=== PATIENT | male | born 1925 | race Caucasian/White ===

== ENCOUNTER 2016-11-09 20:03 | Inpatient (IN) | payer OTHER ==
[~2016-11-09] VITALS: Ht 182.9 cm; Wt 77.0 kg
[2016-11-09] MEDS ORDERED: CEFEPIME 2GM/50 ML (PMX) 50 ML IVPB STA (20:12)
[2016-11-09] MEDS ORDERED: VANCOMYCIN 1 GM (PMX) 250 ML IVPB ONE (20:30)
[2016-11-09] MEDS ORDERED: SOD CHLORIDE 0.9% 1,000 ML IV ONE ×2 (20:30)
[2016-11-09 20:49] LABS: ADD SCAN DIFF NO
[2016-11-09 20:52] LABS: ABNORMAL IP MESSAGE 1; HEMATOCRIT 43.8 % (42.0-52.0); HEMOGLOBIN 13.9 g/dl (14.0-18.0); MEAN CORPUSCULAR HGB CONC 31.7 g/dl (32.0-37.0); MEAN CORPUSCULAR VOLUME 91.4 fl (82.0-101.0); MEAN PLATELET VOLUME 11.1 fl (7.4-10.4); PLATELET COUNT 84 10^3/UL (140-415); RED BLOOD COUNT 4.79 10^6/ul (4.70-6.10); RED CELL DISTRIBUTION WIDTH 17.3 % (11.5-14.5); WHITE BLOOD COUNT 21.4 10^3/ul (4.8-10.8)
[2016-11-09] MEDS ORDERED: PIPER-TAZO 3.375 GM IV (PMX) 100 ML IVPB ONE (21:00)
[2016-11-09 21:05] LABS: ALBUMIN 4.1 g/dl (3.3-4.9); INR 1.55; PROTIME 18.7 Sec (12.2-14.2); PT RATIO 1.5
[2016-11-09 21:06] LABS: POTASSIUM 4.2 mmol/L (3.5-5.1)
[2016-11-09 21:08] LABS: ALBUMIN/GLOBULIN RATIO 1.28; BILIRUBIN,INDIRECT 0.7 mg/dl (0-1.1); BILIRUBIN,TOTAL 0.7 mg/dl (0.2-1.3); CREATININE 1.44 mg/dl (0.61-1.24); TOTAL PROTEIN 7.3 g/dl (6.1-8.1)
[2016-11-09 21:09] LABS: CALCIUM 8.9 mg/dl (8.4-10.2)
[2016-11-09 21:12] LABS: ADD UMIC YES; URINE BILIRUBIN (Dip) 1+ (NEGATIVE); URINE BLOOD (Dip) 3+ (NEGATIVE); URINE COLOR YELLOW (YELLOW); URINE GLUCOSE (Dip) NEGATIVE (NEGATIVE); URINE KETONES (Dip) 15 (NEGATIVE); URINE LEUKOCYTE ESTERASE (Dip) NEGATIVE (NEGATIVE); URINE NITRITE (Dip) NEGATIVE (NEGATIVE); URINE TOTAL PROTEIN (Dip) 2+ (NEGATIVE); URINE UROBILINOGEN (Dip) 0.2 E.U./dL (0.1-1.0)
[2016-11-09 21:24] LABS: PARTIAL THROMBOPLASTIN TIME 96.7 Sec (25.0-35.0)
[2016-11-09 21:33] LABS: TROPONIN-I 0.239 ng/ml (0.00-0.12)
[2016-11-09 21:36] LABS: ICTOTEST NEGATIVE (NEGATIVE)
[2016-11-09 21:38] LABS: BACTERIA,URINE RARE; SQUAMOUS EPITHELIAL CELL,UR RARE; URINE RBCS 0-2 /HPF (0)
--- NOTE | 2016-11-09 21:51 | RADRPT ---
PROCEDURE: XR Chest. CLINICAL INDICATION: Shortness of breath. TECHNIQUE: A single portable view of the chest was obtained. COMPARISON: None FINDINGS: Volume loss in the right hemithorax is seen with rightward mediastinal shift. Ill-defined opacifica tion of the right hemithorax is seen. The aorta is tortuous and atherosclerotic. The cardiomediast inal silhouette is otherwise within normal limits. The left lung is relatively clear. The soft tiss ues and osseous structures demonstrate benign age related senescent changes. IMPRESSION: Right hemithorax volume loss with rightward mediastinal shift. Ill-defined opacification of the right hemithorax. RPTAT: HPNM Physician Mary Ann Date Time Electronically viewed and signed by John Sullivan Physician on 11/09/2016 21:51 /
[2016-11-09] MEDS ORDERED: ASPIRIN 300 MG SUPP PR ONE (22:00)
[2016-11-09 22:14] LABS: LYMPHOCYTES # 0.4 10^3/ul (0.8-2.9); MONOCYTE # 0.4 10^3/ul (0.3-0.9); NEUTROPHIL # 20.1 10^3/ul (1.6-7.5)
[2016-11-09 22:16] LABS: ANISOCYTOSIS 1+; PLATELET ESTIMATE PLT APPEAR DECREASED
[2016-11-09] MEDS ORDERED: SOD CHLORIDE 0.9% 500 ML IV ONE (22:30)
--- NOTE | 2016-11-09 23:04 | RADRPT ---
PROCEDURE: CT chest, abdomen and pelvis without contrast. CLINICAL INDICATION: Shortness of breath and pain. TECHNIQUE: CT of the chest, abdomen and pelvis was performed on a multi-detector high-resolution CT scanner. Contiguous axial images were obtained without intravenous contrast. Coronal and sagitt al reformatted images were also obtained. Images were reviewed on the PACS workstation. One or more of the following dose reduction techniques were used: - Automated exposure control. - Adjustment of the mA and/or kV according to patient size. - Use of iterative reconstruction technique. Exam CTD/vol = 8.93 mGy. Total exam DLP = 703.90 mGy-cm. COMPARISON: None. FINDINGS: Chest: There is a probable right upper lobectomy with scarring and fibrotic changes within the righ t upper chest. There are multiple right-sided rib deformities. There is mild left apical scarring. There are mild bronchiectatic changes within the right lung base. There is no pleural effusion. There is shift of the mediastinum to the right. The visualized thyroid gland is unremarkable. There are no enlarged axillary lymph nodes. There are no enlarged mediastinal or hilar lymph nodes. The heart is normal in size. There is no pericardial thickening or effusion. The aorta is of normal c ourse and caliber with mild scattered atherosclerotic calcifications. There is no pneumothorax. Abdomen: The liver is normal in size. There is no focal mass or dilatation of the biliary tree. T he gallbladder is not distended. Multiple gallstones are identified. The spleen, pancreas and bilat eral adrenal glands are within normal limits. Bilateral kidneys are normal in size with no contour deforming mass. There is no radiopaque renal or ureteral calculus identified. There is mild left pe rinephric stranding. There is no hydronephrosis or hydroureter. There is no retroperitoneal adenop athy. The abdominal aorta is of normal caliber with scattered atherosclerotic calcifications. There is no abnormal bowel wall thickening or distension. There is no bowel obstruction or free air . A normal appendix is identified. There is sigmoid diverticulosis without evidence of diverticuli tis. There is no ascites. Pelvis: The bladder contains a Christine catheter. The uterus is absent. There is no significant pelv ic adenopathy or free fluid. 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 IMPRESSION: Scarring and fibrotic changes within the right upper chest with volume loss and shift of the mediast inum to the right. Mild left apical scarring. Mild right basilar bronchiectasis. Vascular calcifications reflective of atherosclerosis. Cholelithiasis. Mild nonspecific left perinephric stranding. Clinical correlation is needed to exclude pyelonephrit is. Sigmoid diverticulosis without evidence of diverticulitis. 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 .Dominick Huitron MD, MD Date Time Electronically viewed and signed by .Dominick Huitron MD, on 11/09/2016 23:04 .T/
[2016-11-09] MEDS ORDERED: ONDANSETRON 4 MG INJ IV PRN (23:30)
[2016-11-09] MEDS ORDERED: ACETAMINOPHEN 325 MG TAB PO PRN (23:30)
[2016-11-10] VITALS (12 sets, daily range): BP systolic 119–144; BP diastolic 58–63; PULSE 40–48; RESP 16–18; TEMP 99.1; Ht 182.9 cm; Wt 77.0 kg
[2016-11-10] MEDS ORDERED: NITROGLYCERIN (SL) 0.4 MG TAB SL PRN
[2016-11-10] MEDS ORDERED: MAGNESIUM HYDROXIDE 30ML CUP PO PRN
[2016-11-10] MEDS ORDERED: ACETAMINOPHEN 325 MG TAB PO PRN
[2016-11-10] MEDS ORDERED: NACL 0.9% 3 ML SYG IV SCH
[2016-11-10] MEDS ORDERED: VANCOMYCIN IV PER PHARMACY XX SCH
[2016-11-10] MEDS ORDERED: DOCUSATE SODIUM 100 MG CAP PO PRN
[2016-11-10] MEDS ORDERED: morphine 2 MG INJ IV PRN
[2016-11-10] MEDS ORDERED: ONDANSETRON 4 MG INJ IV PRN
[2016-11-10] MEDS ORDERED: BISACODYL 10 MG SUPP PR PRN
--- NOTE | 2016-11-10 00:28 | ERA ---
ER Documentation Chief Complaint Date/Time DATE: 11/10/16 TIME: 00:13 Chief Complaint found ALOC by family approx 30 min ago, febrile. HPI This 89-year-old male was found to be febrile and less responsive than normal by family when he had been at home. He was found this way proximal any 30 minutes prior to coming to the ER via ambulance. He arrives febrile. He was altered and was not able to provide a good history. Family is not yet arrived. ROS Unobtainable secondary to clinical status per Medications Home Meds No Active Prescriptions or Reported Meds Allergies Allergies: Coded Allergies: No Known Drug Allergies (Verified Allergy, Unknown, 11/09/16) Physical Exam Vitals Vital Signs Date Time Temp Pulse Resp B/P Pulse Ox O2 Delivery O2 Flow Rate FiO2 11/09/16 20:09 102.2 50 20 150/57 99 Physical Exam Const: [] No distress Head: Atraumatic Eyes: Normal Conjunctiva, PRL, EOMI ENT: Normal External Ears, Nose, dry mucous membranes of the mouth Neck: Full range of motion..~ No meningismus. Resp: Decreased bibasilar breath sounds, poor participation in inspiration Cardio: Regular bradycardia, no murmurs Abd: Soft, no apparent tenderness, non distended. Normal bowel sounds Skin: No petechiae or rashes, is poor skin turgor Back: No midline or flank tenderness Ext: No cyanosis, or edema Neur: Awake and alert, does not answer orientation questions, Result Diagram: 11/09/16199911/09/161999 Results 24 hrs Laboratory Tests Test 11/09/16 18:30 11/09/16 20:00 11/09/16 23:23 Urine Bacteria RARE Urine Bilirubin 1+ Urine Clarity SLIGHTLY CLOUDY Urine Color YELLOW Urine Glucose NEGATIVE% Urine Hemoglobin 3+ Urine Ictotest NEGATIVE Urine Ketones 15 Urine Leukocyte Esterase NEGATIVE Urine Microscopic RBC 0-2/HPF Urine Microscopic WBC 0-2/HPF Urine Nitrite NEGATIVE Urine Specific [place] >=1.030 Urine Squamous Epithelial Cells RARE Urine Total Protein 2+ Urine Urobilinogen 0.2 E.U./dL Urine pH 5.5 Activated Partial Thromboplast Time 96.7Sec Alanine Aminotransferase (ALT/SGPT) 53IU/L Albumin 4.1g/dl Albumin/Globulin Ratio 1.28 Alkaline Phosphatase 64IU/L Anion Gap 20 Anisocytosis 1+ Aspartate Amino Transf (AST/SGOT) 225IU/L Band Neutrophils % 2.0% Blood Urea Nitrogen 48mg/dl Calcium Level 8.9mg/dl Carbon Dioxide Level 24mmol/L Chloride Level 100mmol/L Creatinine 1.44mg/dl Direct Bilirubin 0.00mg/dl Globulin 3.20g/dl Glucose Level 135mg/dl Hematocrit 43.8% Hemoglobin 13.9g/dl INR International Normalized Ratio 1.55 Indirect Bilirubin 0.7mg/dl Lactic Acid Level 2.1mmol/L 2.8mmol/L Lipase 20U/L Lymphocytes # 0.410^3/ul Lymphocytes % 2.0% Macrocytosis OCCASIONAL Mean Corpuscular Hemoglobin 29.0pg Mean Corpuscular Hemoglobin Concent 31.7g/dl Mean Corpuscular Volume 91.4fl Mean Platelet Volume 11.1fl Monocytes # 0.410^3/ul Monocytes % 2.0% Neutrophils # 20.110^3/ul Neutrophils % 94.0% Platelet Count 8410^3/UL Platelet Estimate PLT APPEAR DECREASED Potassium Level 4.2mmol/L Prothrombin Time 18.7Sec Prothrombin Time Ratio 1.5 Red Blood Count 4.7910^6/ul Red Cell Distribution Width 17.3% Sodium Level 140mmol/L Total Bilirubin 0.7mg/dl Total Protein 7.3g/dl Troponin I 0.239ng/ml White Blood Count 21.410^3/ul Current Medications Medications (Trade) Dose Ordered Sig/Kendall Route PRN Reason Start Time Stop Time Status Last Admin Dose Admin Cefepime HCl 50 ml @ 100 mls/hr ONCE STAT IVPB 11/09/16 20:12 11/09/16 20:39 DC Vancomycin HCl 250 ml @ 125 mls/hr ONCE ONCE IVPB 11/09/16 20:30 11/09/16 22:29 DC 11/09/16 22:54 Sodium Chloride 1,000 ml @ 1,000 mls/hr Q1H ONCE IV 11/09/16 20:30 11/09/16 21:29 DC 11/09/16 21:08 Sodium Chloride 1,000 ml @ 1,000 mls/hr Q1H ONCE IV 11/09/16 20:30 11/09/16 21:29 DC 11/09/16 21:08 Piperacillin Sod/ Tazobactam Sod (Zosyn 3.375gm/ 100 ml (Pmx)) 100 ml @ 200 mls/hr ONCE ONCE IVPB 11/09/16 21:00 11/09/16 21:29 DC 11/09/16 21:08 Aspirin 300 mg 300 mg ONCE ONCE NC 11/09/16 22:00 11/09/16 22:07 DC 11/09/16 21:30 Sodium Chloride (NS) 500 ml @ 500 mls/hr Q1H ONCE IV 11/09/16 22:30 11/09/16 23:29 DC 11/09/16 23:03 Ondansetron HCl (Zofran Inj) 4 mg ER BRIDGE PRN IV NAUSEA AND/OR VOMITING 11/09/16 23:30 11/10/16 23:29 Acetaminophen 650 mg 650 mg ER BRIDGE PRN PO MILD PAIN/FEVER 11/09/16 23:30 11/10/16 23:29 Sodium Chloride (NS) 1,000 ml @ 80 mls/hr [id number] IV 11/09/16 23:49 IV Flush (NS 3 ml) 3 ml PER PROTOCOL IV 11/10/16 00:00 Ondansetron HCl (Zofran Inj) 4 mg Q6H PRN IV NAUSEA AND/OR VOMITING 11/10/16 00:00 Aspirin (Aspirin) 81 mg DAILY PO 11/10/16 09:00 Nitroglycerin (Nitroglycerin (Sl Tab) 0.4 Mg) 1 tab Q5M PRN SL CHEST PAIN 11/10/16 00:00 Acetaminophen (Tylenol Tab) 650 mg Q6H PRN PO PAIN LEVEL 1-3 OR FEVER 11/10/16 00:00 Morphine Sulfate (morphine) 2 mg Q4H PRN IV PAIN LEVEL 7-10 11/10/16 00:00 Docusate Sodium (Colace) 100 mg Q12H PRN PO CONSTIPATION 11/10/16 00:00 Magnesium Hydroxide (Milk Of Mag) 30 ml DAILY PRN PO CONSTIPATION 11/10/16 00:00 Bisacodyl (Dulcolax Supp) 10 mg DAILY PRN NC CONSTIPATION 11/10/16 00:00 Famotidine (Pepcid Iv) 20 mg DAILY IV 11/10/16 09:00 Enoxaparin Sodium (Lovenox) 30 mg DAILY SC 11/10/16 09:00 Vancomycin HCl VANCOMYCIN PER PHARMACY PER PROTOCOL XX 11/10/16 00:00 Cefepime HCl 50 ml @ 100 mls/hr Q12 IVPB 11/10/16 09:00 Vancomycin HCl (Vancocin) 250 ml @ 125 mls/hr Q24H IVPB 11/10/16 17:00 Procedures/MDM Patient with sepsis likely secondary to pneumonia. The patient's initial urinalysis appears to be negative for acute infection there is fat stranding on abdominal CT which may indicate pyelonephritis as possible etiology. I do see possible basilar pneumonia on the chest CT as well. Patient was hydrated with normal saline at 30 cc/kg. He started empirically on Zosyn and vancomycin. Chest x-ray showed possible atelectatic collapse of the right lung. CT was then obtained to look for the source of the sepsis. The radiologist is likely lobectomy has been performed in that lung. Patient had some elevation of lactic acid on the second draw. An additional liter of fluid was administered. Patient's blood pressure remained stable. Being admitted to telemetry in serious condition for further antibiotic therapy and treatment of sepsis with hydration. I spoke with Dr. Silva who will be admitting the patient. EKG interpretation: Sinus bradycardia rate of 58, bifascicular block, no consistent ST elevations or depressions concerning for acute ischemia, borderline right axis deviation. community education coordinator interpretation: Sinus bradycardia without arrhythmias Chest x-ray interpretation: Partial collapse of right lobe of lung with mediastinal shift to the right, no pneumothorax, no obvious infiltrate, no fractures CT chest interpretation: Mediastinal shift with compression of right lung, consolidation right lower lobe, suspicious for pneumonia, pneumothorax, no fractures CT abdomen pelvis interpretation: Perinephric fat stranding, no bowel obstruction, no free air, no acute fractures Critical care time 41 minutes: This includes treatment of sepsis with not completely clear source in the face of troponin elevation, fever, unstable vital signs, careful fluid administration, early antibiotic administration, all visits the patient's bedside to reassess fluid and cardiothymic status, discussion with admitting doctor, discussion with patient's family, this does not include any billable procedures. Departure Diagnosis: Primary Impression: Sepsis Additional Impressions: Pneumonia Renal insufficiency Elevated troponin Lactic acidosis Metabolic encephalopathy Bradycardia DIPAK STANLEY DO Nov 10, 2016 00:27
[2016-11-10] MEDS ORDERED: SOD CHLORIDE 0.9% 1,000 ML IV ONE (00:30)
[2016-11-10] MEDS: SOD CHLORIDE 0.9% 1,000 ML IV SCH ×3 (00:38→16:48)
[2016-11-10 03:27] LABS: CK-MB 12.7 ng/ml (0.0-2.4); TROPONIN-I 0.223 ng/ml (0.00-0.12)
[2016-11-10 06:49] LABS: ADD SCAN DIFF NO
[2016-11-10 06:53] LABS: ABNORMAL IP MESSAGE 1; BASOPHIL # 0.1 10^3/ul (0.0-0.1); BASOPHILS % 0.3 % (0.0-2.0); HEMATOCRIT 36.6 % (42.0-52.0); HEMOGLOBIN 11.3 g/dl (14.0-18.0); LYMPHOCYTES # 0.9 10^3/ul (0.8-2.9); LYMPHOCYTES % 4.8 % (15.0-51.0); MEAN CORPUSCULAR HEMOGLOBIN 28.8 pg (29.0-33.0); MEAN CORPUSCULAR HGB CONC 30.9 g/dl (32.0-37.0); MEAN CORPUSCULAR VOLUME 93.1 fl (82.0-101.0); MEAN PLATELET VOLUME 10.4 fl (7.4-10.4); MONOCYTE # 0.9 10^3/ul (0.3-0.9); MONOCYTES % 4.8 % (0.0-11.0); NEUTROPHIL # 17.3 10^3/ul (1.6-7.5); NEUTROPHILS % 88.4 % (39.0-77.0); PLATELET COUNT 60 10^3/UL (140-415); RED BLOOD COUNT 3.93 10^6/ul (4.70-6.10); RED CELL DISTRIBUTION WIDTH 17.3 % (11.5-14.5); WHITE BLOOD COUNT 19.5 10^3/ul (4.8-10.8)
[2016-11-10 07:02] LABS: ALBUMIN 2.6 g/dl (3.3-4.9)
[2016-11-10 07:03] LABS: POTASSIUM 3.8 mmol/L (3.5-5.1)
[2016-11-10 07:05] LABS: ALBUMIN/GLOBULIN RATIO 1.18; BILIRUBIN,INDIRECT 0.3 mg/dl (0-1.1); BILIRUBIN,TOTAL 0.3 mg/dl (0.2-1.3); CREATININE 1.18 mg/dl (0.61-1.24); TOTAL PROTEIN 4.8 g/dl (6.1-8.1)
[2016-11-10 07:06] LABS: CALCIUM 6.9 mg/dl (8.4-10.2); CHOL/HDL RATIO 2.3 RATIO; MAGNESIUM 1.8 mg/dl (1.7-2.5)
[2016-11-10] MEDS: ASPIRIN 81 MG TAB PO SCH (08:11)
[2016-11-10] MEDS: ENOXAPARIN 30 MG/0.3 ML SYG SC SCH (08:16)
[2016-11-10] MEDS ORDERED: FAMOTIDINE 20 MG INJ IV SCH (09:00)
[2016-11-10] MEDS ORDERED: MAGNESIUM SULFATE 2 GM/50 ML 50 ML IVPB ONE (10:30)
[2016-11-10] MEDS: CEFEPIME 2GM/50 ML (PMX) 50 ML IVPB SCH ×2 (10:44→20:34)
--- NOTE | 2016-11-10 11:04 | HP ---
DATE OF ADMISSION: 11/09/2016 PRIMARY CARE PHYSICIAN: Unknown. CHIEF COMPLAINT ON ADMISSION: Fevers, altered level of consciousness. HISTORY OF PRESENT ILLNESS: This is an 89-year-old male who claims that he does not have much of a past medical history except for status post right upper lobectomy. He could not tell me why; katerin amanda, he has been pretty much independent at home and was brought in yesterday by family after he was f ound at home in an altered mental status. The patient reports that over the past 2 weeks he has bee n feeling weaker. His appetite has been intact, but just generalized weakness. He denies any fever s, chills, nausea, vomiting, dysuria or hematuria. No new cough, no productive cough. No abdominal pain, constipation or diarrhea. He denies chest pain or shortness of breath. He denies any previo us history of coronary artery disease and even denies taking any medications. On arrival yesterday in the emergency department, he was too altered. There is no family apparently; therefore, the hist ory is very limited. Currently, there is no family at bedside. We will try to find them. The meaghan ent was found to have possibly left pyelonephritis with a positive urinalysis. Cultures are pending . Based on the CAT scan of the chest, the findings on the chest x-ray are mostly chronic and relate d to this previous right upper lobe lobectomy. The patient, however, was found to have a white bloo d cell count of 21,000 with significant left shift, neutrophils 91%. He was febrile to 102. His la ctic acid was slightly elevated on admission, which is now resolved by this morning. He was also fo und to have positive troponin, slightly elevated BNP consistent with either NSTEMI or demand ischemi a. He has been started on aspirin along with heparin subq. His troponins are being trended. He is noted to be bradycardic, mostly sinus on telemetry; therefore, cardiology is consulted. A 2-D echo cardiogram has been done. He is on broad spectrum antibiotics until his cultures are back. He is a febrile this morning. ALLERGIES: NO KNOWN ALLERGIES. PAST MEDICAL HISTORY: 1. Unclear, but status post right upper lobectomy for unclear reasons remotely. 2. Status post spine surgery. The patient does not remember if it was thoracic versus lumbar. OUTPATIENT MEDICATIONS: None are listed. SOCIAL HISTORY: The patient denies any alcohol or tobacco use. REVIEW OF SYSTEMS: As per HPI. PHYSICAL EXAMINATION: VITAL SIGNS: Temperature this morning is 97.5 with a T-max of 102.9, heart rate has been in the upp er 40s to low 50s, sinus bradycardia, blood pressure 144/60, pulse of 99% on 2 liters nasal cannula. The patient has a respiratory rate of 18. GENERAL: He is alert and oriented x4 this morning in no acute distress, eating breakfast, comforta ble, able to give his history. HEENT: Pupils are equally round and reactive to light. Extraocular muscles are intact. Anicteric sclerae. NECK: No JVD, no thyromegaly noted. HEART: Regular rate and rhythm. LUNGS: He does have decreased breath sounds in the right upper lobe area, but seems to be clear on the left side and bases. ABDOMEN: Soft, nontender, nondistended. Bowel sounds are present. EXTREMITIES: No edema, clubbing or cyanosis. GENITOURINARY: The patient does have a Christine catheter in place with clear urine. NEUROLOGIC: Exam is very limited, but he is at least 4+/5 strength throughout. Physical therapy wi ll be ordered. LABORATORY DATA: White blood cell count is 19.5 this morning, hemoglobin is 11.3, hematocrit of 36. 6, platelet count of 60, neutrophils 88%. Chemistry with a sodium of 143, potassium 3.8, chloride 1 08, bicarbonate 23, BUN 44, creatinine 1.18 down from 1.44, glucose of 101. Lactic acid has normali zed down to 1.0, calcium 6.9, magnesium 1.8, total bilirubin 0.3, AST 241, ALT 67, alkaline phosphat ase 46. Latest troponin 0.223. BNP 5740, total protein 4.8, albumin 2.6. Fasting lipid panel with in normal. TSH, free T4 pending at this point. Lipase of 20. EKG on admission did show sinus bradycardia in the upper 40s with a right bundle branch block, bifas cicular block. Urinalysis is negative for leukocyte esterase, cloudy, negative for nitrites. RADIOLOGICAL DATA: 1. Chest x-ray on admission did show right hemithorax volume loss with ____ mediastinal shift, ill- defined opacification of right hemithorax. CAT scan of the chest, abdomen and pelvis did show scan mario alberto and several fibrotic changes within the right upper chest with volume loss and shift of the med iastinum to the right. This is secondary to right upper lobectomy. Mild left apical scarring, mild right basilar bronchiectasis, vascular calcification reflective of osteosclerosis, cholelithiasis, mild nonspecific left perinephric stranding, sigmoid diverticulosis without diverticulitis, bilater al pars defect of L5 with grade II anterolisthesis of the L5-S1. ASSESSMENT AND PLAN: This is an 89-year-old male with: 1. Febrile illness that could be secondary to either bronchitis versus urinary tract infection and pyelonephritis. We are awaiting blood cultures along with urine culture. We will have the patient on incentive spirometer, continue broad spectrum antibiotics for now. White count is still elevated , but lactate has normalized. 2. Elevated troponin, possible non-ST elevation myocardial infarction, also concern regarding nenita cardia at this time. Will continue aspirin. I will discuss the case with Dr. Greer. A 2-D echoca rdiogram has been done. We will continue to trend the troponins. Patient denies any previous known history of coronary artery disease so far. His heart rate is too low for any beta blockers current ly and given the concerns for sepsis, we will also avoid any other blood pressure agent unless neede d. 3. Acute kidney injury secondary to prerenal azotemia, improving and resolving. He is on normal sa line at 80 mL an hour. 4. Lactic acidosis, resolved with a lactate down to normal. 5. Sinus bradycardia, so far with bifascicular block, unclear etiology, rule out coronary artery di sease and acute coronary syndrome which may be the case as the patient's troponins are slightly elev ated with normalizing creatinine level. Follow up on 2-D echocardiogram and cardiology evaluation. Currently, the patient is on telemetry, and he is hemodynamically stable. 6. Status post right upper lobectomy. 7. Possible pyelonephritis on CT. Continue current antibiotics. 8. Prophylaxis. Lovenox for DVT prophylaxis. Pepcid for GI prophylaxis. DISPOSITION: The patient on telemetry to be seen by cardiology today. Continue IV antibiotics and will attempt to find family for further disposition. Dictated By: ESPERANZA SALCIDO/SHAKILA Conf#: [id number] [facility]#: [id number]
[2016-11-10 12:51] LABS: TROPONIN-I 0.092 ng/ml (0.00-0.12)
[2016-11-10 12:56] LABS: CK-MB 11.4 ng/ml (0.0-2.4)
--- NOTE | 2016-11-10 13:09 | CONS ---
Date/Time of Note Date/Time of Note DATE: 11/10/16 TIME: 13:03 Assessment/Plan Assessment/Plan Additional Assessment/Plan Presumed sepsis SIRS Encephalopathy 2-1 AV block Acute kidney injury Mildly elevated troponin -Patient with 2-1 AV block on telemetry. Patient remains asymptomatic. Patient with improvement in mental status since initiation of broad-spectrum antibiotics and IV fluids. Would hold any AV dalia blocking agents, continue telemetry monitoring, check echocardiogram to rule out structural heart disease. Troponin elevation is minimal and trending down and patient remains asymptomatic. Likely secondary to sepsis. Continue aspirin, start statin therapy if no complication. Consultation Date/Type/Reason Admit Date/Time Nov 09, 2016 at 23:32 Type of Consultation: cv Reason for Consultation Bradycardia Hx of Present Illness This is an 89-year-old patient who presents to the emergency room secondary to altered mental status over the past 24 hours. As per the family at bedside, yesterday, patient was very sleepy, would not eat and was very sluggish. This was not his normal self. Because of the above, he was brought to the emergency room for evaluation. Patient with presumed sepsis and started on broad- spectrum antibiotics. Today, patient is doing much better, he is awake, following commands, is able to recognize people and knows where he has. He denies any chest pain, shortness of breath, dizziness or lightheadedness. Denied any history of syncope or near syncope with ambulation. 12 point review of systems was performed with all pertinent positives and negatives mentioned above and all else is negative Past Medical History Dementia Past Surgical History Lung surgery Family History Significant Family History: no pertinent family hx Social History Smoking Status: Former smoker Other Social History Lives at home with family Exam/Review of Systems Vital Signs Vitals Vital Signs Date Time Temp Pulse Resp B/P Pulse Ox O2 Delivery O2 Flow Rate FiO2 11/10/16 12:17 48 11/10/16 11:04 98.0 18 135/61 97 11/10/16 01:44 Nasal Cannula 3.0 Intake and Output 11/09/16 11/09/16 11/10/16 15:00 23:00 07:00 Intake Total 600 ml Output Total 800 ml Balance -200 ml Exam Patient alert and oriented to person and place, no apparent distress, able to give history Head: normocephalic Neck: supple Respiratory: other (Coarse breath sounds bilaterally, no wheezing) Cardiovascular: other (S1-S2 heard), regular rate and rhythm (Bradycardic) Gastrointestinal: bowel sounds, non-tender, other (No guarding), soft Extremities: edema (Trace), other (No cyanosis) Results Result Diagram: 11/10/16 0610 11/10/16 0610 Results 24 hrs Laboratory Tests Test 11/09/16 18:30 11/09/16 20:00 11/09/16 23:23 11/10/16 02:28 Urine Bacteria RARE Urine Bilirubin 1+ H Urine Clarity SLIGHTLY CLOUDY Urine Color YELLOW Urine Glucose NEGATIVE Urine Hemoglobin 3+ H Urine Ictotest NEGATIVE Urine Ketones 15 Urine Leukocyte Esterase NEGATIVE Urine Microscopic RBC 0-2 Urine Microscopic WBC 0-2 Urine Nitrite NEGATIVE Urine Specific [place] >=1.030 H Urine Squamous Epithelial Cells RARE Urine Total Protein 2+ H Urine Urobilinogen 0.2 E.U./dL Urine pH 5.5 Activated Partial Thromboplast Time 96.7 *H Alanine Aminotransferase (ALT/SGPT) 53 Albumin 4.1 Albumin/Globulin Ratio 1.28 Alkaline Phosphatase 64 Anion Gap 20 H Anisocytosis 1+ Aspartate Amino Transf (AST/SGOT) 225 H Band Neutrophils % 2.0 Blood Urea Nitrogen 48 H Calcium Level 8.9 Carbon Dioxide Level 24 Chloride Level 100 Creatinine 1.44 H Direct Bilirubin 0.00 Globulin 3.20 Glucose Level 135 Hematocrit 43.8 Hemoglobin 13.9 L INR International Normalized Ratio 1.55 Indirect Bilirubin 0.7 Lactic Acid Level 2.1 2.8 H 0.9 Lipase 20 L Lymphocytes # 0.4 L Lymphocytes % 2.0 L Macrocytosis OCCASIONAL Mean Corpuscular Hemoglobin 29.0 Mean Corpuscular Hemoglobin Concent 31.7 L Mean Corpuscular Volume 91.4 Mean Platelet Volume 11.1 H Monocytes # 0.4 Monocytes % 2.0 Neutrophils # 20.1 H Neutrophils % 94.0 H Platelet Count 84 L Platelet Estimate PLT APPEAR DECREASED Potassium Level 4.2 Prothrombin Time 18.7 H Prothrombin Time Ratio 1.5 Red Blood Count 4.79 Red Cell Distribution Width 17.3 H Sodium Level 140 Total Bilirubin 0.7 Total Protein 7.3 Troponin I 0.239 *H 0.223 *H White Blood Count 21.4 H B-Type Natriuretic Peptide 5740 H Creatine Kinase Creatine Kinase Index 0.1 Creatinine Kinase MB (Mass) 12.70 H Test 11/10/16 06:10 11/10/16 11:45 Alanine Aminotransferase (ALT/SGPT) 67 Albumin 2.6 #L Albumin/Globulin Ratio 1.18 Alkaline Phosphatase 46 Anion Gap 16 Aspartate Amino Transf (AST/SGOT) 241 H Basophils # 0.1 Basophils % 0.3 Blood Urea Nitrogen 44 H Calcium Level 6.9 L Carbon Dioxide Level 23 Chloride Level 108 Cholesterol Level 94 L Cholesterol/HDL Ratio 2.3 Creatinine 1.18 Direct Bilirubin 0.00 Eosinophils # 0.0 Eosinophils % 0.0 Globulin 2.20 Glucose Level 101 HDL Cholesterol 40 Hematocrit 36.6 L Hemoglobin 11.3 L Indirect Bilirubin 0.3 LDL Cholesterol, Calculated 45 Lactic Acid Level 1.0 Lymphocytes # 0.9 Lymphocytes % 4.8 L Magnesium Level 1.8 Mean Corpuscular Hemoglobin 28.8 L Mean Corpuscular Hemoglobin Concent 30.9 L Mean Corpuscular Volume 93.1 Mean Platelet Volume 10.4 Monocytes # 0.9 Monocytes % 4.8 Neutrophils # 17.3 H Neutrophils % 88.4 H Nucleated Red Blood Cells # 0.0 Nucleated Red Blood Cells % 0.0 Platelet Count 60 #L Potassium Level 3.8 Red Blood Count 3.93 L Red Cell Distribution Width 17.3 H Sodium Level 143 Total Bilirubin 0.3 Total Protein 4.8 #L Triglycerides Level 46 White Blood Count 19.5 H Creatine Kinase Creatine Kinase Index Pending Creatinine Kinase MB (Mass) 11.40 H Troponin I 0.092 Medications Medications Current Medications Sodium Chloride (NS) 1,000 ml @ 80 mls/hr [id number] IV Last administered on 00:38; Admin Dose 80 MLS/HR; Start 11/09/16 at 23:49 Ondansetron HCl (Zofran Inj) 4 mg Q6H PRN IV NAUSEA AND/OR VOMITING; Start 11/10 at 00:00 Aspirin (Aspirin) 81 mg DAILY PO Last administered on 11/10/16 08:11; Admin Dose 81 MG; Start 11/10/16 at 09:00 Nitroglycerin (Nitroglycerin (Sl Tab) 0.4 Mg) 1 tab Q5M PRN SL CHEST PAIN; Start 11/10/16 at 00:00 Acetaminophen (Tylenol Tab) 650 mg Q6H PRN PO PAIN LEVEL 1-3 OR FEVER; Start at 00:00 Morphine Sulfate (morphine) 2 mg Q4H PRN IV PAIN LEVEL 7-10; Start 11/10/16 at 00:00 Docusate Sodium (Colace) 100 mg Q12H PRN PO CONSTIPATION; Start 11/10/16 at 00: 00 Magnesium Hydroxide (Milk Of Mag) 30 ml DAILY PRN PO CONSTIPATION; Start at 00:00 Bisacodyl (Dulcolax Supp) 10 mg DAILY PRN [place] CONSTIPATION; Start 11/10/16 at 00: 00 Famotidine (Pepcid Iv) 20 mg DAILY IV Last administered on 11/10/16 08:11; Admin Dose 20 MG; Start 11/10/16 at 09:00 Enoxaparin Sodium 30 mg 30 mg DAILY SC Last administered on 11/10/16 08:16; Admin Dose 30 MG; Start 11/10/16 at 09:00 Cefepime HCl 50 ml @ 100 mls/hr Q12 IVPB Last administered on 11/10/16 10:44; Admin Dose 100 MLS/HR; Start 11/10/16 at 09:00 Vancomycin HCl (Vancocin) 250 ml @ 125 mls/hr Q24H IVPB ; Start 11/10/16 at 17: 00 Procedures Procedures 2-1 AV block with ventricular rate of 48 bpm, right bundle branch block, left anterior fascicular block Ge Greer DO Nov 10, 2016 13:09
[2016-11-10 13:52] LABS: PLATELET COUNT 57 10^3/UL (140-415)
[2016-11-10 14:10] LABS: INR 1.68; PROTIME 19.9 Sec (12.2-14.2); PT RATIO 1.6
[2016-11-10 14:11] LABS: PARTIAL THROMBOPLASTIN TIME 45.1 Sec (25.0-35.0); THROMBIN TIME 16.2 SEC (13.8-19.1)
[2016-11-10 14:14] LABS: D-DIMER 1094.19 ng/ml (<460)
[2016-11-10 14:15] LABS: FIBRIN SPLIT PRODUCT <10 ug/ml (<10)
[2016-11-10] MEDS: VANCOMYCIN 1 GM in NS 250 ML IVPB SCH (16:47)
[2016-11-10 17:19] LABS: CK-MB 7.67 ng/ml (0.0-2.4)
[2016-11-10 17:20] LABS: TROPONIN-I 0.106 ng/ml (0.00-0.12)
[2016-11-10] MEDS ORDERED: ATORVASTATIN 20 MG TAB PO SCH (21:00)
--- NOTE | 2016-11-10 21:36 | RADRPT ---
Echocardiogram Report Patient Name: EARNESTINE MOLINA Gender: Male Date: 1925 Study Date: 10-Nov-2016 Tmd Teacher Assistant: Micha Paz [facility] Location: [address] Ref. Physician: MANJU DIAZ Quality: Technically Difficult Study Procedures: Transthoracic echocardiogram with complete 2D, M-Mode, and doppler examination. Indications: elevated troponin. 2D/M Mode Doppler Measurement Value Normal Ranges Measurement Value Normal Ranges LVIDd 2D 3.8 3.5 - 5.6 cm AV Peak Abdelrahman 2.3 m/sec LVIDs 2D 2.1 2.1 - 4.1 cm AV Peak PG 22.0 mmHg FS 2D 44.9 % LVOT Peak Abdelrahman 0.9 m/sec LVPWd 2D 0.9 0.6 - 1.1 cm LVOT Peak PG 3.0 mmHg IVSd 2D 0.8 0.6 - 1.1 cm TR Peak Abdelrahman 2.8 m/sec IVS/LVPW 2D 1.0 TR Peak PG 32.0 mmHg AoR Diam 2D 2.5 2.0 - 3.7 cm RVSP 35.0 mmHg LA/Ao 2D 1 0 - 1 EDV 2D 55.3 cm3 ESV 2D 9.3 cm3 LA Dimen 2D 3.0 2.3 - 4.0 cm Findings Left Ventricle: Overall, normal left ventricular systolic function. Not all segments visualized. Normal left ventricular cavity size. Normal left ventricular wall thickness. Ejection fraction is visually estimated at 65 %. Right Ventricle: Normal right ventricular size. Normal right ventricular systolic function. Left Atrium: The left atrium is normal in size. Right Atrium: The right atrium is normal in size. Mitral Valve: Mitral valve is not well visualized. Mild mitral annular calcification. Trace mitral regurgitation. Aortic Valve: No significant aortic stenosis or insufficiency. Aortic valve not well visualized. Aortic cusps appear mildly calcified. Tricuspid Valve: Tricuspid valve not well visualized. Estimated peak PA systolic pressure 35 mmHg. There is mild tricuspid regurgitation. Pulmonic Valve: Pulmonic valve not well visualized. Pericardium: Normal pericardium with no significant pericardial effusion. Aorta: Normal aortic root. IVC: Normal size and normal respiratory collapse consistent with normal right atrial pressure. Conclusions Overall, normal left ventricular systolic function. Not all segments visualized. Normal left ventricular cavity size. Normal left ventricular wall thickness. Ejection fraction is visually estimated at 65 %. Normal right ventricular size. Normal right ventricular systolic function. The left atrium is normal in size. The right atrium is normal in size. Estimated peak PA systolic pressure 35 mmHg. There is mild tricuspid regurgitation. Trace mitral regurgitation. No significant aortic stenosis or insufficiency. Normal pericardium with no significant pericardial effusion. Electronically Signed By: Ge Greer 10-Nov-2016 21:35:05 -0800 Patient Name: EARNESTINE MOLINA Study Date: 10-Nov-2016 [id number]
[2016-11-11] VITALS (12 sets, daily range): BP systolic 131–176; BP diastolic 58–79; PULSE 40–50; RESP 18–20
[2016-11-11] MEDS: SOD CHLORIDE 0.9% 1,000 ML IV SCH ×4 (00:49→20:02)
[2016-11-11 06:15] LABS: ADD SCAN DIFF NO
[2016-11-11 06:25] LABS: LYMPHOCYTES # 0.5 10^3/ul (0.8-2.9); MONOCYTE # 0.9 10^3/ul (0.3-0.9); RED CELL DISTRIBUTION WIDTH 17.2 % (11.5-14.5)
[2016-11-11 06:35] LABS: CREATININE 1.02 mg/dl (0.61-1.24)
[2016-11-11 06:36] LABS: CALCIUM 6.9 mg/dl (8.4-10.2)
[2016-11-11 07:00] LABS: MAGNESIUM 2.3 mg/dl (1.7-2.5); PHOSPHORUS 2.1 mg/dl (2.5-4.9)
[2016-11-11 07:13] LABS: BASOPHILS % 0.1 % (0.0-2.0); HEMATOCRIT 36.1 % (42.0-52.0); HEMOGLOBIN 11.2 g/dl (14.0-18.0); MEAN CORPUSCULAR HEMOGLOBIN 28.6 pg (29.0-33.0); MEAN CORPUSCULAR VOLUME 92.1 fl (82.0-101.0); PLATELET COUNT 53 10^3/UL (140-415); RED BLOOD COUNT 3.92 10^6/ul (4.70-6.10); WHITE BLOOD COUNT 15.3 10^3/ul (4.8-10.8)
[2016-11-11 07:14] LABS: ABNORMAL IP MESSAGE 1; NEUTROPHIL # 13.7 10^3/ul (1.6-7.5)
[2016-11-11] MEDS: ASPIRIN 81 MG TAB PO SCH (08:07)
[2016-11-11] MEDS: FAMOTIDINE 20 MG TAB PO SCH (08:07)
[2016-11-11] MEDS: CEFEPIME 2GM/50 ML (PMX) 50 ML IVPB SCH ×2 (08:09→20:02)
[2016-11-11] MEDS: ENOXAPARIN 30 MG/0.3 ML SYG SC SCH (08:11)
--- NOTE | 2016-11-11 10:30 | PN ---
Date/Time of Note Date/Time of Note DATE: 11/11/16 TIME: 09:12 Assessment/Plan VTE Prophylaxis VTE Prophylaxis Intervention: LMWH Lines/Catheters IV [facility]ter Type (from [facility]): Peripheral IV Urinary Cath still in place: Yes Reason Cath still needed: other (indicate) (ELVER, to be discontinued ) Assessment/Plan Assessment/Plan 89-year-old male with: 1. Febrile illness that could be secondary to either bronchitis versus urinary tract infection and pyelonephritis. Afebrile and WBC trending down Blood cx 1/2 with GPC and Urine cx mixed bacteria Repeat Blood cx today Continue current abx while awaiting blood cx. 2. Elevated troponin, possible non-ST elevation myocardial infarction, also concern regarding bradycardia. Appreciate Dr Greer's evaluation and recommendations, CE trended down 2-D echocardiogram wnl. 3. Sinus bradycardia, 2:[address] Greer, unclear etiology, Trop back down to normal. TFTs wnl. Continue telemetry monitoring Remains hemodynamically stable. 4. Acute kidney injury secondary to prerenal azotemia, improving and resolving. But patient also seems to be in rhabdomyolysis with total CK up to 14K Increase IVF to 100 cc/hr and monitor UOP and CK level. 5. [place] [id number] yesterday, repeat CK pending today, continue IVF 6. Thrombocytopenia: unclear if chronic, will try to obtain previous records if any and CT a/p with normal liver Monitor. 7. Lactic acidosis, resolved with a lactate down to normal. 8. Status post right upper lobectomy. 9. Possible pyelonephritis on CT. Continue current antibiotics. Prophylaxis. Lovenox for DVT prophylaxis. Pepcid for GI prophylaxis. DISPOSITION: Continue tele monitoring given bradycardia Monitor CK level Subjective 24 Hr Interval Summary Free Text/Dictation Patient remains stable hemodynamically, still bradycardic Afebrile and WBC trending down. PT eval, d/c dickinson and continue IVF for now Exam/Review of Systems Vital Signs Vitals Vital Signs Date Time Temp Pulse Resp B/P Pulse Ox O2 Delivery O2 Flow Rate FiO2 11/11/16 08:07 40 11/11/16 07:32 98.4 18 140/58 97 11/10/16 21:00 Nasal Cannula 3.0 Intake and Output 11/10/16 11/10/16 11/11/16 15:00 23:00 07:00 Intake Total 1310 ml 100 ml Output Total 500 ml 700 ml Balance 810 ml -600 ml Exam Constitutional: alert, frail, oriented Respiratory: diminished breath sounds (RUL and bases o/w good air movement ), normal air movement Cardiovascular: other (bradycardia) Gastrointestinal: non-tender, soft Musculoskeletal: nl extremities to inspection, other (no edema, clubbing or cyanosis ) Extremities: normal pulses, other Neurological: DRILL PRESS TENDER II-XII intact, nl mental status, nl speech, nl strength Results Result Diagram: 11/11/16 0509 11/11/16 0505 Results 24 hrs Laboratory Tests Test 11/10/16 11:45 11/10/16 13:30 11/10/16 16:20 11/11/16 05:04 Creatine Kinase 06353 H Creatine Kinase Index 0.1 0.1 Creatinine Kinase MB (Mass) 11.40 H 7.67 H Troponin I 0.092 0.106 Activated Partial Thromboplast Time 45.1 H D-Dimer 1094.19 H D-Dimer Comment Fibrinogen 424.0 Free Thyroxine 1.18 INR International Normalized Ratio 1.68 Plasma Fibrin Degradation Products <10 Platelet Count 57 L Prothrombin Time 19.9 H Prothrombin Time Ratio 1.6 Thrombin Time 16.2 Thyroid Stimulating Hormone (TSH) 0.470 Magnesium Level 2.3 Phosphorus Level 2.1 L Test 11/11/16 05:05 11/11/16 05:09 Anion Gap 12 Blood Urea Nitrogen 34 H Calcium Level 6.9 L Carbon Dioxide Level 22 Chloride Level 103 Creatinine 1.02 Glucose Level 94 Potassium Level 4.0 Sodium Level 133 L Basophils # 0.0 Basophils % 0.1 Eosinophils # 0.0 Eosinophils % 0.0 Hematocrit 36.1 L Hemoglobin 11.2 L Lymphocytes # 0.5 L Lymphocytes % 3.0 L Mean Corpuscular Hemoglobin 28.6 L Mean Corpuscular Hemoglobin Concent 31.0 L Mean Corpuscular Volume 92.1 Mean Platelet Volume Monocytes # 0.9 Monocytes % 6.0 Neutrophils # 13.7 H Neutrophils % 90.0 H Nucleated Red Blood Cells # 0.0 Nucleated Red Blood Cells % 0.0 Platelet Count 53 L Red Blood Count 3.92 L Red Cell Distribution Width 17.2 H White Blood Count 15.3 #H Medications Medications Current Medications Sodium Chloride (NS) 1,000 ml @ 80 mls/hr [id number] IV Last administered on 16:48; Admin Dose 80 MLS/HR; Start 11/09/16 at 23:49 Ondansetron HCl (Zofran Inj) 4 mg Q6H PRN IV NAUSEA AND/OR VOMITING; Start 11/10 at 00:00 Aspirin (Aspirin) 81 mg DAILY PO Last administered on 11/11/16 08:07; Admin Dose 81 MG; Start 11/10/16 at 09:00 Nitroglycerin (Nitroglycerin (Sl Tab) 0.4 Mg) 1 tab Q5M PRN SL CHEST PAIN; Start 11/10/16 at 00:00 Acetaminophen (Tylenol Tab) 650 mg Q6H PRN PO PAIN LEVEL 1-3 OR FEVER Last administered on 11/10/16 20:33; Admin Dose 650 MG; Start 11/10/16 at 00:00 Morphine Sulfate (morphine) 2 mg Q4H PRN IV PAIN LEVEL 7-10; Start 11/10/16 at 00:00 Docusate Sodium (Colace) 100 mg Q12H PRN PO CONSTIPATION; Start 11/10/16 at 00: 00 Magnesium Hydroxide (Milk Of Mag) 30 ml DAILY PRN PO CONSTIPATION; Start at 00:00 Bisacodyl (Dulcolax Supp) 10 mg DAILY PRN [place] CONSTIPATION; Start 11/10/16 at 00: 00 Enoxaparin Sodium 30 mg 30 mg DAILY SC Last administered on 11/11/16 08:11; Admin Dose 30 MG; Start 11/10/16 at 09:00 Cefepime HCl 50 ml @ 100 mls/hr Q12 IVPB Last administered on 11/11/16 08:09 ; Admin Dose 100 MLS/HR; Start 11/10/16 at 09:00 Vancomycin HCl (Vancocin) 250 ml @ 125 mls/hr Q24H IVPB Last administered on 16:47; Admin Dose 125 MLS/HR; Start 11/10/16 at 17:00 Atorvastatin Calcium (Lipitor) 20 mg HS PO Last administered on 11/10/16 20:33 ; Admin Dose 20 MG; Start 11/10/16 at 21:00 Famotidine (Pepcid) 20 mg DAILY PO Last administered on 3/10/17at 08:07; Admin Dose 20 MG; Start 11/11/16 at 09:00 Procedures Procedures Echocardiogram Report Patient Name: EARNESTINE MOLINA Gender: Male Date: 1925 Study Date: 10-Nov-2016 Roll Up Machine Operator: Micha Paz RDCS Location: [address] Ref. Physician: MANJU DIAZ Quality: Technically Difficult Study Procedures: Transthoracic echocardiogram with complete 2D, M-Mode, and doppler examination. Indications: elevated troponin. 2D/M Mode Doppler Measurement Value Normal Ranges Measurement Value Normal Ranges LVIDd 2D 3.8 3.5 - 5.6 cm AV Peak Abdelrahman 2.3 m/sec LVIDs 2D 2.1 2.1 - 4.1 cm AV Peak PG 22.0 mmHg FS 2D 44.9 % LVOT Peak Abdelrahman 0.9 m/sec LVPWd 2D 0.9 0.6 - 1.1 cm LVOT Peak PG 3.0 mmHg IVSd 2D 0.8 0.6 - 1.1 cm TR Peak Abdelrahman 2.8 m/sec IVS/LVPW 2D 1.0 TR Peak PG 32.0 mmHg AoR Diam 2D 2.5 2.0 - 3.7 cm RVSP 35.0 mmHg LA/Ao 2D 1 0 - 1 EDV 2D 55.3 cm3 ESV 2D 9.3 cm3 LA Dimen 2D 3.0 2.3 - 4.0 cm Findings Left Ventricle: Overall, normal left ventricular systolic function. Not all segments visualized. Normal left ventricular cavity size. Normal left ventricular wall thickness. Ejection fraction is visually estimated at 65 %. Right Ventricle: Normal right ventricular size. Normal right ventricular systolic function. Left Atrium: The left atrium is normal in size. Right Atrium: The right atrium is normal in size. Mitral Valve: Mitral valve is not well visualized. Mild mitral annular calcification. Trace mitral regurgitation. Aortic Valve: No significant aortic stenosis or insufficiency. Aortic valve not well visualized. Aortic cusps appear mildly calcified. Tricuspid Valve: Tricuspid valve not well visualized. Estimated peak PA systolic pressure 35 mmHg. There is mild tricuspid regurgitation. Pulmonic Valve: Pulmonic valve not well visualized. Pericardium: Normal pericardium with no significant pericardial effusion. Aorta: Normal aortic root. IVC: Normal size and normal respiratory collapse consistent with normal right atrial pressure. Conclusions Overall, normal left ventricular systolic function. Not all segments visualized. Normal left ventricular cavity size. Normal left ventricular wall thickness. Ejection fraction is visually estimated at 65 %. Normal right ventricular size. Normal right ventricular systolic function. The left atrium is normal in size. The right atrium is normal in size. Estimated peak PA systolic pressure 35 mmHg. There is mild tricuspid regurgitation. Trace mitral regurgitation. No significant aortic stenosis or insufficiency. Normal pericardium with no significant pericardial effusion. Electronically Signed By: Ge Greer 10-Nov-2016 21:35:05 -0800 ESPERANZA DIAZ Nov 11, 2016 10:25
--- NOTE | 2016-11-11 13:47 | CONS ---
Date/Time of Note Date/Time of Note DATE: 11/11/16 TIME: 13:42 Assessment/Plan Assessment/Plan Additional Assessment/Plan Presumed sepsis with positive blood cultures SIRS Encephalopathy Preserved ejection fraction 2-1 AV block Acute kidney injury Mildly elevated troponin Thrombocytopenia -Patient remains in 2-1 AV block. Mental status is slowly improving. Blood cultures are positive. Given the persistent 2-1 AV block, patient will likely need a pacemaker once sepsis has resolved, cultures remain negative. Continue on telemetry monitoring, no AV dalia blocking agents at the current time. Given worsening thrombocytopenia, will stop aspirin. Consultation Date/Type/Reason Admit Date/Time Nov 09, 2016 at 23:32 Initial Consult Date Type of Consultation: cv 24 HR Interval Summary Free Text/Dictation Patient feeling better, denies shortness of breath, dizziness, chest pain or palpitations Exam/Review of Systems Vital Signs Vitals Vital Signs Date Time Temp Pulse Resp B/P Pulse Ox O2 Delivery O2 Flow Rate FiO2 11/11/16 12:25 47 11/11/16 11:18 98.3 18 174/75 96 11/11/16 08:00 Nasal Cannula 3.0 Intake and Output 11/10/16 11/10/16 11/11/16 15:00 23:00 07:00 Intake Total 1310 ml 100 ml Output Total 500 ml 700 ml Balance 810 ml -600 ml Exam Following commands, appears tired, no apparent distress Constitutional: alert, frail Head: normocephalic Neck: supple Respiratory: other (Coarse breath sounds bilaterally, no wheezing) Cardiovascular: other (S1-S2 heard), regular rate and rhythm Gastrointestinal: bowel sounds, non-tender, other (No guarding), soft Extremities: other (No edema) Results Result Diagram: 11/11/16 0509 11/11/16 0505 Results 24 hrs Laboratory Tests Test 11/10/16 16:20 11/11/16 05:04 11/11/16 05:05 11/11/16 05:09 Creatine Kinase Creatine Kinase Index 0.1 Creatinine Kinase MB (Mass) 7.67 H Troponin I 0.106 Magnesium Level 2.3 Phosphorus Level 2.1 L Anion Gap 12 Blood Urea Nitrogen 34 H Calcium Level 6.9 L Carbon Dioxide Level 22 Chloride Level 103 Creatinine 1.02 Glucose Level 94 Potassium Level 4.0 Sodium Level 133 L Basophils # 0.0 Basophils % 0.1 Eosinophils # 0.0 Eosinophils % 0.0 Hematocrit 36.1 L Hemoglobin 11.2 L Lymphocytes # 0.5 L Lymphocytes % 3.0 L Mean Corpuscular Hemoglobin 28.6 L Mean Corpuscular Hemoglobin Concent 31.0 L Mean Corpuscular Volume 92.1 Mean Platelet Volume Monocytes # 0.9 Monocytes % 6.0 Neutrophils # 13.7 H Neutrophils % 90.0 H Nucleated Red Blood Cells # 0.0 Nucleated Red Blood Cells % 0.0 Platelet Count 53 L Red Blood Count 3.92 L Red Cell Distribution Width 17.2 H White Blood Count 15.3 #H Medications Medications Current Medications Sodium Chloride (NS) 1,000 ml @ 100 mls/hr Q10H IV Last administered on 11:07; Admin Dose 100 MLS/HR; Start 11/09/16 at 23:49 Ondansetron HCl (Zofran Inj) 4 mg Q6H PRN IV NAUSEA AND/OR VOMITING; Start 11/10 at 00:00 Aspirin (Aspirin) 81 mg DAILY PO Last administered on 11/11/16 08:07; Admin Dose 81 MG; Start 11/10/16 at 09:00 Nitroglycerin (Nitroglycerin (Sl Tab) 0.4 Mg) 1 tab Q5M PRN SL CHEST PAIN; Start 11/10/16 at 00:00 Acetaminophen (Tylenol Tab) 650 mg Q6H PRN PO PAIN LEVEL 1-3 OR FEVER Last administered on 11/10/16 20:33; Admin Dose 650 MG; Start 11/10/16 at 00:00 Morphine Sulfate (morphine) 2 mg Q4H PRN IV PAIN LEVEL 7-10; Start 11/10/16 at 00:00 Docusate Sodium (Colace) 100 mg Q12H PRN PO CONSTIPATION; Start 11/10/16 at 00: 00 Magnesium Hydroxide (Milk Of Mag) 30 ml DAILY PRN PO CONSTIPATION; Start at 00:00 Bisacodyl (Dulcolax Supp) 10 mg DAILY PRN [place] CONSTIPATION; Start 11/10/16 at 00: 00 Enoxaparin Sodium 30 mg 30 mg DAILY SC Last administered on 11/11/16 08:11; Admin Dose 30 MG; Start 11/10/16 at 09:00 Cefepime HCl 50 ml @ 100 mls/hr Q12 IVPB Last administered on 11/11/16 08:09 ; Admin Dose 100 MLS/HR; Start 11/10/16 at 09:00 Vancomycin HCl (Vancocin) 250 ml @ 125 mls/hr Q24H IVPB Last administered on 16:47; Admin Dose 125 MLS/HR; Start 11/10/16 at 17:00 Atorvastatin Calcium (Lipitor) 20 mg HS PO Last administered on 11/10/16 20:33 ; Admin Dose 20 MG; Start 11/10/16 at 21:00 Famotidine (Pepcid) 20 mg DAILY PO Last administered on 11/11/16 08:07; Admin Dose 20 MG; Start 11/11/16 at 09:00 Ge Greer DO Nov 11, 2016 13:46
--- NOTE | 2016-11-11 14:45 | RADRPT ---
Vent Rate: 41 bpm RR Interval: 0 msec UT Interval: 150 msec QRS Duration: 140 msec QT Interval: 474 msec QTC Interval: 391 msec P-R-T [place]: 58 - -84 - 54 degrees Sinus rhythm with 2nd degree AV block with 2:1 AV conduction Left axis deviation Right bundle branch block Abnormal ECG Electronically Signed By: Dar Saucedo [id number]
[2016-11-11] MEDS: VANCOMYCIN 1 GM in NS 250 ML IVPB SCH (17:10)
[2016-11-12] VITALS (12 sets, daily range): BP systolic 135–189; BP diastolic 61–83; PULSE 37–90; RESP 18–20
[2016-11-12 06:24] LABS: ABNORMAL IP MESSAGE 1; ADD SCAN DIFF NO; BASOPHILS % 0.2 % (0.0-2.0); EOSINOPHILS % 0.1 % (0.0-7.0); HEMATOCRIT 35.2 % (42.0-52.0); LYMPHOCYTES # 0.6 10^3/ul (0.8-2.9); LYMPHOCYTES % 5.5 % (15.0-51.0); MEAN CORPUSCULAR HEMOGLOBIN 28.3 pg (29.0-33.0); MEAN CORPUSCULAR HGB CONC 31.3 g/dl (32.0-37.0); MEAN CORPUSCULAR VOLUME 90.5 fl (82.0-101.0); MONOCYTE # 0.7 10^3/ul (0.3-0.9); MONOCYTES % 6.2 % (0.0-11.0); NEUTROPHIL # 9.8 10^3/ul (1.6-7.5); NEUTROPHILS % 86.9 % (39.0-77.0); PLATELET COUNT 60 10^3/UL (140-415); RED BLOOD COUNT 3.89 10^6/ul (4.70-6.10); RED CELL DISTRIBUTION WIDTH 17.1 % (11.5-14.5); WHITE BLOOD COUNT 11.3 10^3/ul (4.8-10.8)
[2016-11-12 06:41] LABS: ALBUMIN 2.2 g/dl (3.3-4.9); POTASSIUM 4.1 mmol/L (3.5-5.1)
[2016-11-12 06:43] LABS: CREATININE 0.82 mg/dl (0.61-1.24)
[2016-11-12 06:44] LABS: BILIRUBIN,INDIRECT 0.2 mg/dl (0-1.1); BILIRUBIN,TOTAL 0.2 mg/dl (0.2-1.3); CALCIUM 6.8 mg/dl (8.4-10.2); TOTAL PROTEIN 4.4 g/dl (6.1-8.1)
[2016-11-12 06:47] LABS: MAGNESIUM 2.2 mg/dl (1.7-2.5); PHOSPHORUS 1.9 mg/dl (2.5-4.9)
[2016-11-12] MEDS: SOD CHLORIDE 0.9% 1,000 ML IV SCH ×2 (08:40→17:38)
[2016-11-12] MEDS: FAMOTIDINE 20 MG TAB PO SCH (09:52)
[2016-11-12] MEDS: CEFEPIME 2GM/50 ML (PMX) 50 ML IVPB SCH ×2 (09:53→21:18)
--- NOTE | 2016-11-12 10:27 | PN ---
Date/Time of Note Date/Time of Note DATE: 11/12/16 TIME: 10:22 Assessment/Plan VTE Prophylaxis VTE Prophylaxis Intervention: LMWH Lines/Catheters IV Catheter Type (from Nrs): Peripheral IV Urinary Cath still in place: Yes Reason Cath still needed: urinary retention Assessment/Plan Chief Complaint/Hosp Course 89 yo with possible NSTEMI staph bacteremia leukocytosis,resolving 2 to 1 AV block Rhabdo Cont vanco and zosyn pacemaker after sepsis is resolved check repeat blood cx results Problems: Subjective 24 Hr Interval Summary Constitutional: no complaints Exam/Review of Systems Vital Signs Vitals Vital Signs Date Time Temp Pulse Resp B/P Pulse Ox O2 Delivery O2 Flow Rate FiO2 11/12/16 08:41 38 11/12/16 07:18 97.9 18 157/70 95 11/12/16 00:53 Nasal Cannula 3.0 Intake and Output 11/11/16 11/11/16 11/12/16 15:00 23:00 07:00 Intake Total 50 ml 1540 ml 1400 ml Output Total 200 ml 650 ml Balance 50 ml 1340 ml 750 ml Exam Constitutional: alert, oriented Neck: non-tender, supple Respiratory: clear to auscultation, normal air movement Cardiovascular: regular rate and rhythm Gastrointestinal: bowel sounds, non-tender, soft Extremities: normal pulses Results Result Diagram: 11/12/16 0550 11/12/16 0555 Results 24 hrs Laboratory Tests Test 11/11/16 12:10 11/12/16 05:50 11/12/16 05:55 Creatine Kinase 6953 #H 2601 #H Basophils # 0.0 Basophils % 0.2 Eosinophils # 0.0 Eosinophils % 0.1 Hematocrit 35.2 L Hemoglobin 11.0 L Lymphocytes # 0.6 L Lymphocytes % 5.5 L Magnesium Level 2.2 Mean Corpuscular Hemoglobin 28.3 L Mean Corpuscular Hemoglobin Concent 31.3 L Mean Corpuscular Volume 90.5 Mean Platelet Volume Monocytes # 0.7 Monocytes % 6.2 Neutrophils # 9.8 H Neutrophils % 86.9 H Nucleated Red Blood Cells # 0.0 Nucleated Red Blood Cells % 0.0 Phosphorus Level 1.9 L Platelet Count 60 L Red Blood Count 3.89 L Red Cell Distribution Width 17.1 H White Blood Count 11.3 #H Alanine Aminotransferase (ALT/SGPT) 77 H Albumin 2.2 L Albumin/Globulin Ratio 1.00 Alkaline Phosphatase 40 L Anion Gap 11 Aspartate Amino Transf (AST/SGOT) 108 #H Blood Urea Nitrogen 29 H Calcium Level 6.8 L Carbon Dioxide Level 22 Chloride Level 103 Creatinine 0.82 Direct Bilirubin 0.00 Globulin 2.20 Glucose Level 90 Indirect Bilirubin 0.2 Potassium Level 4.1 Sodium Level 132 L Total Bilirubin 0.2 Total Protein 4.4 L Medications Medications Current Medications Sodium Chloride (NS) 1,000 ml @ 100 mls/hr Q10H IV Last administered on 20:02; Admin Dose 100 MLS/HR; Start 11/09/16 at 23:49 Ondansetron HCl (Zofran Inj) 4 mg Q6H PRN IV NAUSEA AND/OR VOMITING; Start 11/10 at 00:00 Nitroglycerin (Nitroglycerin (Sl Tab) 0.4 Mg) 1 tab Q5M PRN SL CHEST PAIN; Start 11/10/16 at 00:00 Acetaminophen (Tylenol Tab) 650 mg Q6H PRN PO PAIN LEVEL 1-3 OR FEVER Last administered on 11/10/16 20:33; Admin Dose 650 MG; Start 11/10/16 at 00:00 Morphine Sulfate (morphine) 2 mg Q4H PRN IV PAIN LEVEL 7-10; Start 11/10/16 at 00:00 Docusate Sodium (Colace) 100 mg Q12H PRN PO CONSTIPATION; Start 11/10/16 at 00: 00 Magnesium Hydroxide (Milk Of Mag) 30 ml DAILY PRN PO CONSTIPATION; Start at 00:00 Bisacodyl (Dulcolax Supp) 10 mg DAILY PRN [place] CONSTIPATION; Start 11/10/16 at 00: 00 Enoxaparin Sodium 30 mg 30 mg DAILY SC Last administered on 11/11/16 08:11; Admin Dose 30 MG; Start 11/10/16 at 09:00; Status Future Hold Cefepime HCl 50 ml @ 100 mls/hr Q12 IVPB Last administered on 11/12/16 09:53 ; Admin Dose 100 MLS/HR; Start 11/10/16 at 09:00 Vancomycin HCl (Vancocin) 250 ml @ 125 mls/hr Q24H IVPB Last administered on 17:10; Admin Dose 125 MLS/HR; Start 11/10/16 at 17:00 Famotidine (Pepcid) 20 mg DAILY PO Last administered on 11/12/16t 09:52; Admin Dose 20 MG; Start 11/11/16 at 09:00 Miscellaneous Information (*Rx Drug Level Order Reminder*) VANCOMYCIN TROUGH AT 1600 ONCE ONCE XX ; Start 11/13/16 at 16:00; Stop 11/13/16 at 16:01 ANGELA IRELAND MD Nov 12, 2016 10:27
[2016-11-12] MEDS: VANCOMYCIN 1 GM in NS 250 ML IVPB SCH (17:37)
[2016-11-13] VITALS (12 sets, daily range): BP systolic 147–175; BP diastolic 67–96; PULSE 37–51; RESP 15–20
[2016-11-13] MEDS: SOD CHLORIDE 0.9% 1,000 ML IV SCH ×3 (04:40→14:40)
[2016-11-13 05:58] LABS: ADD SCAN DIFF NO
[2016-11-13 06:10] LABS: ABNORMAL IP MESSAGE 1; BASOPHILS % 0.4 % (0.0-2.0); EOSINOPHILS # 0.1 10^3/ul (0.0-0.5); EOSINOPHILS % 0.5 % (0.0-7.0); HEMATOCRIT 35.6 % (42.0-52.0); LYMPHOCYTES # 0.6 10^3/ul (0.8-2.9); LYMPHOCYTES % 6.3 % (15.0-51.0); MEAN CORPUSCULAR HEMOGLOBIN 28.1 pg (29.0-33.0); MEAN CORPUSCULAR HGB CONC 30.9 g/dl (32.0-37.0); MEAN CORPUSCULAR VOLUME 90.8 fl (82.0-101.0); MEAN PLATELET VOLUME 11.4 fl (7.4-10.4); MONOCYTE # 0.7 10^3/ul (0.3-0.9); MONOCYTES % 6.9 % (0.0-11.0); NEUTROPHIL # 8.1 10^3/ul (1.6-7.5); NEUTROPHILS % 82.9 % (39.0-77.0); PLATELET COUNT 86 10^3/UL (140-415); RED BLOOD COUNT 3.92 10^6/ul (4.70-6.10); RED CELL DISTRIBUTION WIDTH 16.8 % (11.5-14.5); WHITE BLOOD COUNT 9.7 10^3/ul (4.8-10.8)
[2016-11-13] MEDS: FAMOTIDINE 20 MG TAB PO SCH (09:21)
[2016-11-13] MEDS: CEFEPIME 2GM/50 ML (PMX) 50 ML IVPB SCH ×2 (09:21→21:03)
--- NOTE | 2016-11-13 10:55 | PN ---
Date/Time of Note Date/Time of Note DATE: 11/13/16 TIME: 10:53 Assessment/Plan VTE Prophylaxis VTE Prophylaxis Intervention: LMWH Lines/Catheters [facility] Type (from [facility]): Peripheral IV Urinary Cath still in place: No Assessment/Plan Chief Complaint/Hosp Course 89 yo with possible NSTEMI staph bacteremia leukocytosis,resolving 2 to 1 AV block Rhabdo Cont vanco and zosyn pacemaker after sepsis is resolved check repeat blood cx results cards follow up Problems: Subjective 24 Hr Interval Summary Constitutional: no complaints Exam/Review of Systems Vital Signs Vitals Vital Signs Date Time Temp Pulse Resp B/P Pulse Ox O2 Delivery O2 Flow Rate FiO2 11/13/16 10:18 Nasal Cannula 3.0 11/13/16 09:51 28 11/13/16 08:23 37 11/13/16 06:54 98.7 18 147/96 96 Exam Constitutional: alert, oriented Neck: supple Respiratory: clear to auscultation, normal air movement Cardiovascular: regular rate and rhythm Gastrointestinal: bowel sounds, non-tender, soft Extremities: normal pulses, No calf tenderness, No clubbing, No cyanosis, No edema, No other, No palpable cord, No pitting pedal edema, No tenderness Results Result Diagram: 11/13/16 0532 11/12/16 0555 Results 24 hrs Laboratory Tests Test 11/13/16 05:32 Basophils # 0.0 Basophils % 0.4 Eosinophils # 0.1 Eosinophils % 0.5 Hematocrit 35.6 L Hemoglobin 11.0 L Lymphocytes # 0.6 L Lymphocytes % 6.3 L Mean Corpuscular Hemoglobin 28.1 L Mean Corpuscular Hemoglobin Concent 30.9 L Mean Corpuscular Volume 90.8 Mean Platelet Volume 11.4 H Monocytes # 0.7 Monocytes % 6.9 Neutrophils # 8.1 H Neutrophils % 82.9 H Nucleated Red Blood Cells # 0.0 Nucleated Red Blood Cells % 0.0 Platelet Count 86 #L Red Blood Count 3.92 L Red Cell Distribution Width 16.8 H White Blood Count 9.7 Medications Medications Current Medications Sodium Chloride (NS) 1,000 ml @ 100 mls/hr Q10H IV Last administered on t 17:38; Admin Dose 100 MLS/HR; Start 11/09/16 at 23:49 Ondansetron HCl (Zofran Inj) 4 mg Q6H PRN IV NAUSEA AND/OR VOMITING; Start 11/10 at 00:00 Nitroglycerin (Nitroglycerin (Sl Tab) 0.4 Mg) 1 tab Q5M PRN SL CHEST PAIN; Start 11/10/16 at 00:00 Acetaminophen (Tylenol Tab) 650 mg Q6H PRN PO PAIN LEVEL 1-3 OR FEVER Last administered on 11/10/16 20:33; Admin Dose 650 MG; Start 11/10/16 at 00:00 Morphine Sulfate (morphine) 2 mg Q4H PRN IV PAIN LEVEL 7-10; Start 11/10/16 at 00:00 Docusate Sodium (Colace) 100 mg Q12H PRN PO CONSTIPATION; Start 11/10/16 at 00: 00 Magnesium Hydroxide (Milk Of Mag) 30 ml DAILY PRN PO CONSTIPATION; Start at 00:00 Bisacodyl (Dulcolax Supp) 10 mg DAILY PRN [place] CONSTIPATION; Start 11/10/16 at 00: 00 Enoxaparin Sodium 30 mg 30 mg DAILY SC Last administered on 11/11/16 08:11; Admin Dose 30 MG; Start 11/10/16 at 09:00; Status Future Hold Cefepime HCl 50 ml @ 100 mls/hr Q12 IVPB Last administered on 11/13/16 09:21 ; Admin Dose 100 MLS/HR; Start 11/10/16 at 09:00 Vancomycin HCl (Vancocin) 250 ml @ 125 mls/hr Q24H IVPB Last administered on 17:37; Admin Dose 125 MLS/HR; Start 11/10/16 at 17:00 Famotidine (Pepcid) 20 mg DAILY PO Last administered on 11/13/16 09:21; Admin Dose 20 MG; Start 11/11/16 at 09:00 Miscellaneous Information (*Rx Drug Level Order Reminder*) VANCOMYCIN TROUGH AT 1600 ONCE ONCE XX ; Start 11/13/16 at 16:00; Stop 11/13/16 at 16:01 ANGELA IRELAND MD Nov 13, 2016 10:55
[2016-11-13] MEDS: VANCOMYCIN 1 GM in NS 250 ML IVPB SCH (19:21)
[2016-11-14] VITALS (12 sets, daily range): BP systolic 158–178; BP diastolic 72–78; PULSE 39–46; RESP 18–20
[2016-11-14] MEDS: SOD CHLORIDE 0.9% 1,000 ML IV SCH ×3 (00:44→20:42)
[2016-11-14] MEDS: VANCOMYCIN 1 GM in NS 250 ML IVPB SCH ×2 (05:28→17:02)
--- NOTE | 2016-11-14 07:19 | PN ---
DATE: 11/13/2016 CARDIOLOGY FOLLOWUP SUBJECTIVE: The patient is still with high degree AV block, 2:1 AV block, heart rate of about 30s. Blood pressure has remained stable though. No reported chest pain or pressure. The patient still with recurrent fever. Temperature 101 last night. MEDICATIONS: Reviewed as per medical reconciliation sheet, personally reviewed. PHYSICAL EXAMINATION: VITAL SIGNS: Temperature ____, heart rate of 42, blood pressure ____, respiratory rate of 18 and sa turating 96%, T-max is 101 as mentioned. CARDIOVASCULAR: Regular rate and rhythm. PULMONARY: No wheezes anteriorly. GASTROINTESTINAL: Soft. EXTREMITIES: With trivial edema. NEUROLOGIC: Awake. LABORATORY: WBC of 9.7, hemoglobin 11, platelets 86. ASSESSMENT AND PLAN: 1. High-degree atrioventricular block. 2. Sepsis and bacteremia, etiology unclear. 3. Renal failure. 4. Mildly abnormal troponin. 5. Thrombocytopenia. RECOMMENDATIONS: Continue ____ antibiotic therapy for now. We will continue to closely monitor on telemetry. Permanent pacemaker once infectious has resolved and cleared from the ID standpoint. Dr. Greer will resume care tomorrow. Dictated By: AMITA SUMMERS MD AV/NTS Conf#: [id number] DID#: [id number] CC: Dr. Romero;*End*
[2016-11-14 07:34] LABS: CREATININE 0.81 mg/dl (0.61-1.24)
--- NOTE | 2016-11-14 07:45 | PN ---
DATE: 11/12/2016 CARDIOLOGY FOLLOWUP SUBJECTIVE: The patient denies any chest pain or pressure to me. He still remains in heart block, but overall stable. MEDICATIONS: Reviewed. PHYSICAL EXAMINATION: VITAL SIGNS: Temperature 101, heart rate of 51, blood pressure of 180/80, respiratory rate of 20, s aturating 96%. HEENT: Normocephalic, atraumatic. CARDIOVASCULAR: Regular rate and rhythm, systolic murmur. PULMONARY: No wheezes. GASTROINTESTINAL: Soft. EXTREMITIES: . NEUROLOGIC: Awake and alert. LABORATORY: WBC 11.3, hemoglobin 11, platelet of . Sodium 132, potassium 4.1, BUN of 29, crea tinine 0.82, glucose of 90. ALT of 77, AST of 108. ASSESSMENT AND PLAN: 1. 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 2. Mildly abnormal troponin, probably false positive troponin. 3. Recurrent fever and bacteremia/sepsis. 4. Hypertension. RECOMMENDATIONS: Antibiotic as per internal medicine. Aspirin is on hold due to thrombocytopenia. Will monitor on telemetry. Awaiting pacemaker once infectious disease, infection shepherd clears up. Dictated By: AMITA SUMMERS MD AV/NTS Conf#: [id number] DID#: [id number]
[2016-11-14] MEDS: CEFEPIME 2GM/50 ML (PMX) 50 ML IVPB SCH (09:02)
[2016-11-14] MEDS: FAMOTIDINE 20 MG TAB PO SCH (09:02)
--- NOTE | 2016-11-14 11:31 | PN ---
Date/Time of Note Date/Time of Note DATE: 11/14/16 TIME: 10:59 Assessment/Plan VTE Prophylaxis VTE Prophylaxis Intervention: SCD's Lines/Catheters IV [facility]ter Type (from [facility]): Peripheral IV Urinary Cath still in place: No Assessment/Plan Assessment/Plan 89-year-old male with: 1. S/p Sepsis secondary to either bronchitis versus urinary tract infection and pyelonephritis. Afebrile and WBC trending down Blood cx 1/2 with Coag negative staph and Urine cx mixed bacteria, all likely contaminants, repeat Blood cx NGTD Continue current abx for now and repeat labs this AM. 2. Sinus bradycardia, 2:[address] Greer, unclear etiology, Trop back down to normal. TFTs wnl. Pacemaker placement per cardio, continue telemetry monitoring Remains hemodynamically stable. 3. Elevated troponin, possible non-ST elevation myocardial infarction, also concern regarding bradycardia. Appreciate Dr Greer's evaluation and recommendations, CE trended down 2-D echocardiogram wnl. 4. Hypertension: start Norvasc and add hydralazine prn. 5. Rhabdomyolysis: CK down to 2601 2 days ago, repeat CK pending today, on IVF. 6. Thrombocytopenia: seems to be improving, unclear if chronic, CT A/P with normal appearance of liver but per family, patient was taking a lot of Tylenol for shoulder pain. Monitor. 7. Acute kidney injury secondary to prerenal azotemia, Resolved. 8. Possible pyelonephritis on CT. Continue current antibiotics. 9. Status post right upper lobectomy. Prophylaxis. SCDs for DVT ppx. Pepcid for GI prophylaxis. DISPOSITION: Pacemaker when ok with cardio, continue tele monitoring given bradycardia, f/u CK level today. Subjective 24 Hr Interval Summary Free Text/Dictation Patient doing OK No complaints Still with significant bradycardia, low 40's to high 30's Repeat blood cx negative on IV abx for now, AM labs pending Exam/Review of Systems Vital Signs Vitals Vital Signs Date Time Temp Pulse Resp B/P Pulse Ox O2 Delivery O2 Flow Rate FiO2 11/14/16 08:19 39 11/14/16 07:54 Nasal Cannula 3.0 11/14/16 07:36 98.2 18 163/72 97 11/13/16 17:00 28 Intake and Output 11/13/16 11/13/1617 15:00 23:00 07:00 Intake Total 740 ml 600 ml Output Total 900 ml 800 ml Balance -160 ml -200 ml Exam Constitutional: alert, frail, oriented (x3) Respiratory: clear to auscultation, normal air movement Cardiovascular: other (bradycardia ) Gastrointestinal: non-tender, soft Musculoskeletal: nl extremities to inspection Extremities: normal pulses, other (no edema, clubbing or cyanosis ) Neurological: [employer] II-XII intact, nl mental status, nl speech, other ( generalised weakness ) Results Result Diagram: 11/13/16 0532 11/14/16 0546 Results 24 hrs Laboratory Tests Test 11/13/16 16:00 11/14/16 05:46 Vancomycin Level Trough 6.2 L Blood Urea Nitrogen 25 H Creatinine 0.81 Medications Medications Current Medications Sodium Chloride (NS) 1,000 ml @ 100 mls/hr Q10H IV Last administered on 00:44; Admin Dose 100 MLS/HR; Start 11/09/16 at 23:49 Ondansetron HCl (Zofran Inj) 4 mg Q6H PRN IV NAUSEA AND/OR VOMITING; Start 11/10 at 00:00 Nitroglycerin (Nitroglycerin (Sl Tab) 0.4 Mg) 1 tab Q5M PRN SL CHEST PAIN; Start 11/10/16 at 00:00 Acetaminophen (Tylenol Tab) 650 mg Q6H PRN PO PAIN LEVEL 1-3 OR FEVER Last administered on 11/10/16 20:33; Admin Dose 650 MG; Start 11/10/16 at 00:00 Morphine Sulfate (morphine) 2 mg Q4H PRN IV PAIN LEVEL 7-10; Start 11/10/16 at 00:00 Docusate Sodium (Colace) 100 mg Q12H PRN PO CONSTIPATION; Start 11/10/16 at 00: 00 Magnesium Hydroxide (Milk Of Mag) 30 ml DAILY PRN PO CONSTIPATION; Start at 00:00 Bisacodyl (Dulcolax Supp) [address] CONSTIPATION; Start 11/10/16 at 00: 00 Enoxaparin Sodium 30 mg 30 mg DAILY SC Last administered on 11/11/16 08:11; Admin Dose 30 MG; Start 11/10/16 at 09:00; Status Future Hold Cefepime HCl (Maxipime 2gm/50 ml (Pmx)) 50 ml @ 100 mls/hr Q12 IVPB Last administered on 11/14/16 09:02; Admin Dose 100 MLS/HR; Start 11/10/16 at 09:00 Famotidine 20 mg 20 mg DAILY PO Last administered on 11/14/16 09:02; Admin Dose 20 MG; Start 11/11/16 at 09:00 Vancomycin HCl (Vancocin) 250 ml @ 125 mls/hr Q12H IVPB Last administered on 05:28; Admin Dose 125 MLS/HR; Start 11/14/16 at 05:00 ESPERANZA DIAZ Nov 14, 2016 11:10
[2016-11-14] MEDS ORDERED: hydrALAzine 20 MG INJ IV PRN (12:00)
[2016-11-14 12:08] LABS: ADD SCAN DIFF NO
[2016-11-14 12:10] LABS: ABNORMAL IP MESSAGE 1; BASOPHILS % 0.3 % (0.0-2.0); EOSINOPHILS # 0.1 10^3/ul (0.0-0.5); EOSINOPHILS % 0.9 % (0.0-7.0); HEMATOCRIT 35.2 % (42.0-52.0); HEMOGLOBIN 11.1 g/dl (14.0-18.0); LYMPHOCYTES # 0.6 10^3/ul (0.8-2.9); LYMPHOCYTES % 5.9 % (15.0-51.0); MEAN CORPUSCULAR HEMOGLOBIN 28.4 pg (29.0-33.0); MEAN CORPUSCULAR HGB CONC 31.5 g/dl (32.0-37.0); MEAN PLATELET VOLUME 12.1 fl (7.4-10.4); MONOCYTE # 0.6 10^3/ul (0.3-0.9); MONOCYTES % 6.5 % (0.0-11.0); NEUTROPHIL # 7.7 10^3/ul (1.6-7.5); NEUTROPHILS % 83.1 % (39.0-77.0); PLATELET COUNT 121 10^3/UL (140-415); RED BLOOD COUNT 3.91 10^6/ul (4.70-6.10); RED CELL DISTRIBUTION WIDTH 16.8 % (11.5-14.5); WHITE BLOOD COUNT 9.3 10^3/ul (4.8-10.8)
[2016-11-14 12:21] LABS: ALBUMIN 2.4 g/dl (3.3-4.9)
[2016-11-14 12:22] LABS: POTASSIUM 3.7 mmol/L (3.5-5.1)
[2016-11-14 12:24] LABS: ALBUMIN/GLOBULIN RATIO 0.92; BILIRUBIN,INDIRECT 0.4 mg/dl (0-1.1); BILIRUBIN,TOTAL 0.4 mg/dl (0.2-1.3); CREATININE 0.78 mg/dl (0.61-1.24)
[2016-11-14 12:25] LABS: CALCIUM 7.5 mg/dl (8.4-10.2)
[2016-11-14] MEDS: AMLODIPINE 5 MG TAB PO SCH ×2 (12:56→20:43)
--- NOTE | 2016-11-14 15:37 | CONS ---
Date/Time of Note Date/Time of Note DATE: 11/14/16 TIME: 15:35 Assessment/Plan Assessment/Plan Additional Assessment/Plan Presumed sepsis with positive blood cultures SIRS Encephalopathy Preserved ejection fraction 2-1 AV block Acute kidney injury Mildly elevated troponin Thrombocytopenia -Patient remains in 2-1 AV block. Blood pressure remained stable. Platelet count is improving. Continue to hold AV dalia blocking agents. Etiology of sepsis still unclear. Blood pressure elevated and started on Norvasc. Consultation Date/Type/Reason Admit Date/Time Nov 09, 2016 at 23:32 Type of Consultation: cv 24 HR Interval Summary Free Text/Dictation Patient seen and examined. Denies dizziness, palpitations or chest pain Exam/Review of Systems Vital Signs Vitals Vital Signs Date Time Temp Pulse Resp B/P Pulse Ox O2 Delivery O2 Flow Rate FiO2 11/14/16 12:51 98.0 49 18 178/77 98 11/14/16 07:54 Nasal Cannula 3.0 11/13/16 17:00 28 Intake and Output 11/13/16 11/13/16 11/14/16 15:00 23:00 07:00 Intake Total 740 ml 600 ml Output Total 900 ml 800 ml Balance -160 ml -200 ml Exam Awake, following commands, confused at times, no apparent distress Head: normocephalic Neck: supple Respiratory: other (Coarse breath sounds bilaterally, no wheezing) Cardiovascular: other (S1-S2), regular rate and rhythm Gastrointestinal: bowel sounds, non-tender, other (No guarding), soft Extremities: other (No edema or cyanosis) Results Result Diagram: 11/14/16 1157 11/14/16 1157 Results 24 hrs Laboratory Tests Test 11/13/16 16:00 11/14/16 05:46 11/14/16 11:57 Vancomycin Level Trough 6.2 L Blood Urea Nitrogen 25 H 23 H Creatinine 0.81 0.78 Alanine Aminotransferase (ALT/SGPT) 65 Albumin 2.4 L Albumin/Globulin Ratio 0.92 Alkaline Phosphatase 53 Anion Gap 11 Aspartate Amino Transf (AST/SGOT) 44 Basophils # 0.0 Basophils % 0.3 Calcium Level 7.5 L Carbon Dioxide Level 25 Chloride Level 102 Creatine Kinase 356 H Direct Bilirubin 0.00 Eosinophils # 0.1 Eosinophils % 0.9 Globulin 2.60 Glucose Level 101 Hematocrit 35.2 L Hemoglobin 11.1 L Indirect Bilirubin 0.4 Lymphocytes # 0.6 L Lymphocytes % 5.9 L Magnesium Level 2.0 Mean Corpuscular Hemoglobin 28.4 L Mean Corpuscular Hemoglobin Concent 31.5 L Mean Corpuscular Volume 90.0 Mean Platelet Volume 12.1 H Monocytes # 0.6 Monocytes % 6.5 Neutrophils # 7.7 H Neutrophils % 83.1 H Nucleated Red Blood Cells # 0.0 Nucleated Red Blood Cells % 0.0 Platelet Count 121 #L Potassium Level 3.7 Red Blood Count 3.91 L Red Cell Distribution Width 16.8 H Sodium Level 134 L Total Bilirubin 0.4 Total Protein 5.0 L White Blood Count 9.3 Medications Medications Current Medications Sodium Chloride (NS) 1,000 ml @ 100 mls/hr Q10H IV Last administered on 00:44; Admin Dose 100 MLS/HR; Start 11/09/16 at 23:49 Ondansetron HCl (Zofran Inj) 4 mg Q6H PRN IV NAUSEA AND/OR VOMITING; Start 11/10 at 00:00 Nitroglycerin (Nitroglycerin (Sl Tab) 0.4 Mg) 1 tab Q5M PRN SL CHEST PAIN; Start 11/10/16 at 00:00 Acetaminophen (Tylenol Tab) 650 mg Q6H PRN PO PAIN LEVEL 1-3 OR FEVER Last administered on 11/10/16 20:33; Admin Dose 650 MG; Start 11/10/16 at 00:00 Morphine Sulfate (morphine) 2 mg Q4H PRN IV PAIN LEVEL 7-10; Start 11/10/16 at 00:00 Docusate Sodium (Colace) 100 mg Q12H PRN PO CONSTIPATION; Start 11/10/16 at 00: 00 Magnesium Hydroxide (Milk Of Mag) 30 ml DAILY PRN PO CONSTIPATION; Start at 00:00 Bisacodyl (Dulcolax Supp) 10 mg DAILY PRN [place] CONSTIPATION; Start 11/10/16 at 00: 00 Enoxaparin Sodium 30 mg 30 mg DAILY SC Last administered on 11/11/16 08:11; Admin Dose 30 MG; Start 11/10/16 at 09:00; Status Future Hold Cefepime HCl (Maxipime 2gm/50 ml (Pmx)) 50 ml @ 100 mls/hr Q12 IVPB Last administered on 11/14/16 09:02; Admin Dose 100 MLS/HR; Start 11/10/16 at 09:00 Famotidine 20 mg 20 mg DAILY PO Last administered on 11/14/16 09:02; Admin Dose 20 MG; Start 11/11/16 at 09:00 Vancomycin HCl (Vancocin) 250 ml @ 125 mls/hr Q12H IVPB Last administered on 05:28; Admin Dose 125 MLS/HR; Start 11/14/16 at 05:00 Amlodipine Besylate (Norvasc) 5 mg BID PO Last administered on 11/14/16 12:56 ; Admin Dose 5 MG; Start 11/14/16 at 12:00 Hydralazine HCl (Apresoline) 10 mg Q8H PRN IV ELEVATED BLOOD PRESSURE; Start at 12:00 Miscellaneous Information (*Rx Drug Level Order Reminder*) 1 ONCE ONCE XX ; Start 11/15/16 at 04:00; Stop 11/15/16 at 04:01 Ge Greer DO Nov 14, 2016 15:37
--- NOTE | 2016-11-14 20:18 | CONS ---
DATE OF ADMISSION: 11/09/2016 DATE OF CONSULTATION: 11/14/2016 REASON FOR CONSULTATION: Persistent bradycardia with a 2:1 block. HISTORY OF PRESENT ILLNESS: Mr. Torres is an 89-year-old gentleman who presented with altered ment al status and found to be febrile with elevated white count and positive blood cultures. In [facility], since his admission, he has demonstrated 2:1 heart block with heart rate dipping into the 30s at times and an underlying right bundle branch block. The patient appears alert and oriented, although he is not expressive and answers questions with 1 word answers at this time. ALLERGIES: NO KNOWN ALLERGIES: PAST MEDICAL HISTORY: Unknown other than right upper lobe lobectomy. SOCIAL HISTORY: Denies alcohol or tobacco use. PHYSICAL EXAMINATION: GENERAL: He is currently in no distress. VITAL SIGNS: Temperature 98, pulse 47, blood pressure 159/78, oxygen saturation 98%. LUNGS: Reveal occasional rhonchi, but basically clear. CARDIAC: Reveals a regular, bradycardic rhythm with a faint systolic murmur appreciated. ABDOMEN: Soft. EXTREMITIES: Revealed no edema. DIAGNOSTIC DATA: EKG shows 2:1 block with a right bundle branch block. Lab results show sodium 134 , potassium 3.7, BUN 23, creatinine 0.7. White count 9.3, hematocrit 35.2. INR 1.6. Echocardiogra m reveals a normal ejection fraction. ASSESSMENT AND PLAN: Given the patient's persistent 2:1 block and significant bradycardia as well a s his wide ____ QRS, I believe a pacemaker is indicated. I am somewhat concerned given his presenta tion with infection. Although he is currently afebrile, white count has returned to normal, and blo od cultures on repeat are negative, I have asked infectious disease to weigh in as to whether it is reasonable to proceed with pacemaker at the current time. For the time being, he does continue on I V antibiotics. The procedure was explained to his daughter and his will come to the hospital to discuss furthe r, as requested. Tentatively we have scheduled to proceed with dual chamber pacemaker implantation tomorrow afternoon . The risks of bleeding, hematoma, pneumothorax, and tamponade as well as infection were explained. Thank you very much for this consultation. Dictated By: JUAN TURNER/SHAKILA Conf#: [id number] DID#: [id number] CC: ESPERANZA DIAZ MD;*[facility]*
--- NOTE | 2016-11-14 20:35 | CONS ---
DATE OF ADMISSION: 11/09/2016 DATE OF CONSULTATION: 11/14/2016 TYPE OF CONSULTATION: Infectious disease. REASON FOR CONSULTATION: Antibiotic management. HISTORY OF PRESENT ILLNESS: Keaton Torres is an 89-year-old male who comes in on the with fever a nd altered levels of consciousness and is being seen for antibiotic management. 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 Th e patient was found at home with altered mental status. Over the last 2 weeks prior to admission, h kevan has been feeling weaker. The patient was found to have left pyelonephritis and a positive urinaly sis. On admission, his white count was 19.5, H and H 11.3/36.6, platelet count of 60,000 with 88% n eutrophils. BUN and creatinine of 44/1.18. Lactic acid has come down to 1.0. Chest x-ray on admis sandro showed a right hemithorax, volume loss with mediastinal shift to the right, ill-defined opacifi cation of the right hemithorax. CT scan of the chest, abdomen, and pelvis did show some scarring an d severe fibrotic changes within the right upper chest with volume loss and shift of mediastinum to the right, secondary to right upper lobectomy, mild left apical scarring, mild right basilar bronchi ectasis, vascular calcification reflective of osteosclerosis, cholelithiasis. 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 The patient had febrile illness, which could be seco ndary to bronchitis or urinary tract infection and pyelonephritis. HOSPITAL COURSE: The patient had blood cultures for coagulase negative staph 09/07 and he had mixed g rachana-positive organism in his urine from the . Chest x-ray is as previously outlined. The patien t was placed on vancomycin and cefepime. He was seen in consultation by Dr. Vasquez and Dr. Greer. Dr. Greer noted presumed sepsis with positive blood cultures, SIRS, encephalopathy, preserved ejec tion fraction. PAST MEDICAL HISTORY: Operations as outlined. FAMILY HISTORY: Noncontributory. SOCIAL HISTORY: Does not smoke, drink, or abuse drugs. ALLERGIES: NONE TO PENICILLIN, SULFA, OR FOODS. MEDICATIONS: Per chart. REVIEW OF SYSTEMS: Noncontributory. PHYSICAL EXAMINATION: VITAL SIGNS: The patient had a temperature 102.9 when he was admitted. He is no longer febrile. H is heart rate was in the 40s to 50s, sinus bradycardia. Respiratory rate of 18. SKIN: Without generalized rash. HEENT: Within normal limits. NECK: Supple. LYMPH NODES: None palpable. CHEST: Decreased breath sounds at the bases. HEART: Without murmur or gallop. ABDOMEN: Soft, nontender without organosplenomegaly or masses. EXTREMITIES: Without cyanosis, clubbing, or edema. RECTAL AND GENITAL: Deferred. NEUROLOGIC: No focal neurological abnormalities. 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 Cultures remain negative. The patient also had thrombocytopenia. Today his white count is 9.3, platelet count is 221,000. BUN and creatinine are 23/0.78. Urine is negative for nitrite a nd leukocyte esterase. His microbiology, the blood culture is probably contaminant. I will repeat blood cultures. His urine, there is probable contaminant. We will repeat the cultures, but I think that he should be ready for placement of a pacemaker in very short order. I want to thank Dr. Diaz and the consultants for asking me to see this patient. Dictated By: ALEXANDRU AYERS MD, JD/SHAKILA Conf#: [id number] DID#: [id number] CC: ESPERANZA DIAZ MD;*End*
[2016-11-15] VITALS (19 sets, daily range): BP systolic 135–171; BP diastolic 63–89; PULSE 40–92; RESP 16–20
[2016-11-15 03:48] LABS: ADD SCAN DIFF NO
[2016-11-15 03:57] LABS: BASOPHIL # 0.1 10^3/ul (0.0-0.1); BASOPHILS % 0.5 % (0.0-2.0); EOSINOPHILS # 0.1 10^3/ul (0.0-0.5); EOSINOPHILS % 0.4 % (0.0-7.0); HEMOGLOBIN 11.5 g/dl (14.0-18.0); LYMPHOCYTES # 0.6 10^3/ul (0.8-2.9); LYMPHOCYTES % 5.4 % (15.0-51.0); MEAN CORPUSCULAR HEMOGLOBIN 28.6 pg (29.0-33.0); MEAN CORPUSCULAR HGB CONC 31.9 g/dl (32.0-37.0); MEAN CORPUSCULAR VOLUME 89.6 fl (82.0-101.0); MONOCYTE # 0.6 10^3/ul (0.3-0.9); MONOCYTES % 5.2 % (0.0-11.0); NEUTROPHIL # 9.7 10^3/ul (1.6-7.5); NEUTROPHILS % 84.2 % (39.0-77.0); PLATELET COUNT 151 10^3/UL (140-415); RED BLOOD COUNT 4.02 10^6/ul (4.70-6.10); RED CELL DISTRIBUTION WIDTH 16.6 % (11.5-14.5); WHITE BLOOD COUNT 11.5 10^3/ul (4.8-10.8)
[2016-11-15 04:03] LABS: POTASSIUM 3.7 mmol/L (3.5-5.1)
[2016-11-15 04:05] LABS: CREATININE 0.81 mg/dl (0.61-1.24)
[2016-11-15 04:06] LABS: CALCIUM 7.5 mg/dl (8.4-10.2)
[2016-11-15] MEDS: VANCOMYCIN 1 GM in NS 250 ML IVPB SCH ×2 (05:19→17:33)
[2016-11-15] MEDS: SOD CHLORIDE 0.9% 1,000 ML IV SCH ×3 (05:56→16:40)
[2016-11-15] MEDS: AMLODIPINE 5 MG TAB PO SCH ×2 (08:41→21:11)
[2016-11-15] MEDS: FAMOTIDINE 20 MG TAB PO SCH (08:41)
--- NOTE | 2016-11-15 12:27 | PN ---
Date/Time of Note Date/Time of Note DATE: 11/15/16 TIME: 12:09 Assessment/Plan VTE Prophylaxis VTE Prophylaxis Intervention: SCD's Lines/Catheters IV Catheter Type (from Nrs): Peripheral IV Urinary Cath still in place: No Assessment/Plan Assessment/Plan 89-year-old male with: 1. S/p Sepsis secondary to either bronchitis versus urinary tract infection and pyelonephritis. Afebrile and WBC trended down Blood cx 1/2 with Coag negative staph and Urine cx mixed bacteria, all likely contaminants, repeat Blood cx NGTD Appreciate ID recs Continue current abx for now F/u AM labs. 2. Sinus bradycardia, 2:[address] Greer, unclear etiology, Trop back down to normal. TFTs wnl. Pacemaker placement per cardio, ID eval was requested and appreciate recommendations from Dr Knowles Continue telemetry monitoring Remains hemodynamically stable. 3. Elevated troponin, possible non-ST elevation myocardial infarction, also concern regarding bradycardia. Appreciate Dr Greer's evaluation and recommendations, CE trended down 2-D echocardiogram wnl. 4. Hypertension: continue Norvasc and hydralazine prn. 5. Rhabdomyolysis: CK down to 300's, on IVF. 6. Thrombocytopenia: resolved CT A/P with normal appearance of liver but per family, patient was taking a lot of Tylenol for shoulder pain. 7. Acute kidney injury secondary to prerenal azotemia, resolved. 8. Possible pyelonephritis on CT. Continue current antibiotics. Appreciate ID recs. 9. Status post right upper lobectomy. Prophylaxis. SCDs for DVT ppx. Pepcid for GI prophylaxis. DISPOSITION: Tentatively on schedule for Pacemaker this afternoon if Ok per ID. Subjective 24 Hr Interval Summary Free Text/Dictation Patient remains afebrile and stable Appreciate Dr Knowles's evaluation and Dr Garcia's eval also Patient tentatively on schedule for Pacer today unless ID says otherwise, Exam/Review of Systems Vital Signs Vitals Vital Signs Date Time Temp Pulse Resp B/P Pulse Ox O2 Delivery O2 Flow Rate FiO2 11/15/16 11:30 98.1 50 18 148/70 91 11/15/16 08:20 Nasal Cannula 3.0 11/13/16 17:00 28 Intake and Output 11/14/16 11/14/16 11/15/16 15:00 23:00 07:00 Intake Total 100 ml 1800 ml 700 ml Output Total 900 ml Balance 100 ml 900 ml 700 ml Exam Constitutional: alert, oriented (x2 to 3), well developed Respiratory: clear to auscultation, normal air movement Cardiovascular: nl pulses, regular rate and rhythm Gastrointestinal: non-tender, soft Musculoskeletal: nl extremities to inspection Extremities: normal pulses Neurological: STORE DIRECTOR II-XII intact, nl mental status (at baseline ), nl speech, other (improved generalized weakness ) Results Result Diagram: 11/15/16 0335 11/15/16 0335 Results 24 hrs Laboratory Tests Test 11/15/16 03:35 Anion Gap 13 Basophils # 0.1 Basophils % 0.5 Blood Urea Nitrogen 21 H Calcium Level 7.5 L Carbon Dioxide Level 25 Chloride Level 102 Creatine Kinase 311 H Creatinine 0.81 Eosinophils # 0.1 Eosinophils % 0.4 Glucose Level 90 Hematocrit 36.0 L Hemoglobin 11.5 L Lymphocytes # 0.6 L Lymphocytes % 5.4 L Magnesium Level 2.0 Mean Corpuscular Hemoglobin 28.6 L Mean Corpuscular Hemoglobin Concent 31.9 L Mean Corpuscular Volume 89.6 Mean Platelet Volume 12.0 H Monocytes # 0.6 Monocytes % 5.2 Neutrophils # 9.7 H Neutrophils % 84.2 H Nucleated Red Blood Cells # 0.0 Nucleated Red Blood Cells % 0.0 Platelet Count 151 # Potassium Level 3.7 Red Blood Count 4.02 L Red Cell Distribution Width 16.6 H Sodium Level 136 Vancomycin Level Trough 11.2 White Blood Count 11.5 #H Medications Medications Current Medications Sodium Chloride (NS) 1,000 ml @ 100 mls/hr Q10H IV Last administered on 20:42; Admin Dose 100 MLS/HR; Start 11/09/16 at 23:49 Ondansetron HCl (Zofran Inj) 4 mg Q6H PRN IV NAUSEA AND/OR VOMITING; Start 11/10 at 00:00 Nitroglycerin (Nitroglycerin (Sl Tab) 0.4 Mg) 1 tab Q5M PRN SL CHEST PAIN; Start 11/10/16 at 00:00 Acetaminophen (Tylenol Tab) 650 mg Q6H PRN PO PAIN LEVEL 1-3 OR FEVER Last administered on 11/10/16 20:33; Admin Dose 650 MG; Start 11/10/16 at 00:00 Morphine Sulfate (morphine) 2 mg Q4H PRN IV PAIN LEVEL 7-10; Start 11/10/16 at 00:00 Docusate Sodium (Colace) 100 mg Q12H PRN PO CONSTIPATION; Start 11/10/16 at 00: 00 Magnesium Hydroxide (Milk Of Mag) 30 ml DAILY PRN PO CONSTIPATION; Start at 00:00 Bisacodyl (Dulcolax Supp) 10 mg DAILY PRN [place] CONSTIPATION; Start 11/10/16 at 00: 00 Enoxaparin Sodium (Lovenox) 30 mg DAILY SC Last administered on 11/11/16 08:11 ; Admin Dose 30 MG; Start 11/10/16 at 09:00; Status Future Hold Famotidine 20 mg 20 mg DAILY PO Last administered on 11/15/16 08:41; Admin Dose 20 MG; Start 11/11/16 at 09:00 Vancomycin HCl (Vancocin) 250 ml @ 125 mls/hr Q12H IVPB Last administered on 05:19; Admin Dose 125 MLS/HR; Start 11/14/16 at 05:00 Amlodipine Besylate (Norvasc) 5 mg BID PO Last administered on 11/15/16 08:41 ; Admin Dose 5 MG; Start 11/14/16 at 12:00 Hydralazine HCl (Apresoline) 10 mg Q8H PRN IV ELEVATED BLOOD PRESSURE; Start at 12:00 ESPERANZA DIAZ Nov 15, 2016 12:27
--- NOTE | 2016-11-15 14:32 | CONS ---
Date/Time of Note Date/Time of Note DATE: 11/15/16 TIME: 14:30 Assessment/Plan Assessment/Plan Additional Assessment/Plan Presumed sepsis with positive blood cultures SIRS Encephalopathy Preserved ejection fraction 2-1 AV block Acute kidney injury Mildly elevated troponin Thrombocytopenia -Patient planned for pacemaker once deemed appropriate to proceed as per our infectious disease colleagues. Blood pressure on the higher end, continue Norvasc, patient has hydralazine as needed ordered. Consultation Date/Type/Reason Admit Date/Time Nov 09, 2016 at 23:32 Type of Consultation: cv 24 HR Interval Summary Free Text/Dictation Denies shortness of breath, chest pain or dizziness Exam/Review of Systems Vital Signs Vitals Vital Signs Date Time Temp Pulse Resp B/P Pulse Ox O2 Delivery O2 Flow Rate FiO2 11/15/16 12:00 46 11/15/16 11:30 98.1 18 148/70 91 11/15/16 08:20 Nasal Cannula 3.0 11/13/16 17:00 28 Intake and Output 11/14/16 11/14/16 11/15/16 15:00 23:00 07:00 Intake Total 100 ml 1800 ml 700 ml Output Total 900 ml Balance 100 ml 900 ml 700 ml Exam Follows commands, no apparent distress Constitutional: alert, frail Head: normocephalic Neck: supple Respiratory: other (Coarse breath sounds bilaterally, no wheezing) Cardiovascular: other, regular rate and rhythm Gastrointestinal: bowel sounds, non-tender, other (No guarding), soft Extremities: other (No edema) Results Result Diagram: 11/15/16 0335 11/15/16 0335 Results 24 hrs Laboratory Tests Test 11/15/16 03:35 Anion Gap 13 Basophils # 0.1 Basophils % 0.5 Blood Urea Nitrogen 21 H Calcium Level 7.5 L Carbon Dioxide Level 25 Chloride Level 102 Creatine Kinase 311 H Creatinine 0.81 Eosinophils # 0.1 Eosinophils % 0.4 Glucose Level 90 Hematocrit 36.0 L Hemoglobin 11.5 L Lymphocytes # 0.6 L Lymphocytes % 5.4 L Magnesium Level 2.0 Mean Corpuscular Hemoglobin 28.6 L Mean Corpuscular Hemoglobin Concent 31.9 L Mean Corpuscular Volume 89.6 Mean Platelet Volume 12.0 H Monocytes # 0.6 Monocytes % 5.2 Neutrophils # 9.7 H Neutrophils % 84.2 H Nucleated Red Blood Cells # 0.0 Nucleated Red Blood Cells % 0.0 Platelet Count 151 # Potassium Level 3.7 Red Blood Count 4.02 L Red Cell Distribution Width 16.6 H Sodium Level 136 Vancomycin Level Trough 11.2 White Blood Count 11.5 #H Medications Medications Current Medications Sodium Chloride (NS) 1,000 ml @ 100 mls/hr Q10H IV Last administered on 13:33; Admin Dose 100 MLS/HR; Start 11/09/16 at 23:49 Ondansetron HCl (Zofran Inj) 4 mg Q6H PRN IV NAUSEA AND/OR VOMITING; Start 11/10 at 00:00 Nitroglycerin (Nitroglycerin (Sl Tab) 0.4 Mg) 1 tab Q5M PRN SL CHEST PAIN; Start 11/10/16 at 00:00 Acetaminophen (Tylenol Tab) 650 mg Q6H PRN PO PAIN LEVEL 1-3 OR FEVER Last administered on 11/10/16 20:33; Admin Dose 650 MG; Start 11/10/16 at 00:00 Morphine Sulfate (morphine) 2 mg Q4H PRN IV PAIN LEVEL 7-10; Start 11/10/16 at 00:00 Docusate Sodium (Colace) 100 mg Q12H PRN PO CONSTIPATION; Start 11/10/16 at 00: 00 Magnesium Hydroxide (Milk Of Mag) 30 ml DAILY PRN PO CONSTIPATION; Start at 00:00 Bisacodyl (Dulcolax Supp) 10 mg DAILY PRN [place] CONSTIPATION; Start 11/10/16 at 00: 00 Enoxaparin Sodium (Lovenox) 30 mg DAILY SC Last administered on 11/11/16 08:11 ; Admin Dose 30 MG; Start 11/10/16 at 09:00; Status Future Hold Famotidine 20 mg 20 mg DAILY PO Last administered on 11/15/16 08:41; Admin Dose 20 MG; Start 11/11/16 at 09:00 Vancomycin HCl (Vancocin) 250 ml @ 125 mls/hr Q12H IVPB Last administered on 05:19; Admin Dose 125 MLS/HR; Start 11/14/16 at 05:00 Amlodipine Besylate (Norvasc) 5 mg BID PO Last administered on 11/15/16 08:41 ; Admin Dose 5 MG; Start 11/14/16 at 12:00 Hydralazine HCl (Apresoline) 10 mg Q8H PRN IV ELEVATED BLOOD PRESSURE; Start at 12:00 Ge Greer DO Nov 15, 2016 14:32
--- NOTE | 2016-11-15 15:10 | PN ---
DATE: SUBJECTIVE: Mr. Torres is resting comfortably, is alert and responsive. His white count today is 11.5, H and H of 11.5 and 36, platelet count of 151. He is afebrile. His pulse is 46-50. He has b lood cultures pending and urine cultures pending. OBJECTIVE: SKIN: Without generalized rash. CHEST: Decreased breath sounds at the bases. HEART: Without murmur or gallop. ABDOMEN: Soft, nontender, without organosplenomegaly or masses. EXTREMITIES: Without cyanosis, clubbing, or edema. IMPRESSION AND PLAN: Mr. Torres has only coagulase negative staph growing from a blood culture, 1 out of 4 so far, which is probable contaminant, and his urine culture is probable contaminant as wel l, although when he came in, his white count was significantly elevated at 21.4. At this present ti me, I think that he is a candidate for pacemaker placement, and I am clearing him for pacemaker plac ement today. Dictated By: ALEXANDRU AYERS MD, JD/SHAKILA Conf#: [id number] DID#: [id number]
[2016-11-15] MEDS ORDERED: POLYMYXIN/BACITRACIN 1L IRRIG IRR SCH (16:00)
[2016-11-15] MEDS ORDERED: SOD CHLORIDE 0.9% 500 ML ONE (17:26)
[2016-11-15] MEDS ORDERED: LIDOCAINE 1% (MDV) 20 ML INJ ONE (17:26)
[2016-11-15] MEDS ORDERED: IOHEXOL 350MG/ML 50 ML BTL ONE (17:27)
[2016-11-15] MEDS ORDERED: MIDAZOLAM 1 MG/ML 2 ML INJ ONE ×2 (17:32→17:56)
[2016-11-15] MEDS ORDERED: FENTAnyl 50 MCG/ML VIAL ONE ×2 (17:32→17:56)
--- NOTE | 2016-11-15 19:13 | OPR ---
DATE OF OPERATION: 11/15/2016 INDICATIONS: The patient with persistent 2:1 AV block presented for dual chamber pacemaker placemen t. CONSENT: Informed consent was signed by the patient's family member. Antibiotics were given prior to skin incision. The patient was sedated with incremental doses of fentanyl and Versed, first dose at 15/30. [facility] end [facility] 1850. PROCEDURE NOTE: Left pectoral region was prepped in the usual fashion. A 3 cm incision was made un elsy the left clavicle. Using a combination of blunt dissection and electrocautery, the tissue was d issected to the pectoral fascia. Hemostasis was achieved. Two venous accesses were obtained under fluoroscopic guidance using the axillary approach. Initially, an active RV lead was passed to the RV septum, although I felt that it was selecting the RV free wall. As such, I exchanged this for a passive lead, which was placed in the right ventricul ar apex where excellent sensing and pacing characteristics were confirmed. The sheath was splint and the lead was sutured to the fascia using 0 silk nonresorbable sutures. Over the second guidewire, a 6-Vincentian peelaway sheath was placed in the subclavian vein through whic h an atrial pacing lead was placed in the left atrial appendage and screwed into place where excelle nt pacing and sensing characteristics were confirmed. The sheath was split and lead was sutured to the fascia using 0 silk nonresorbable sutures. The device was connected to the leads, placed in the pocket, and sutured to the pectoral fascia. Pocket was irrigated with antibiotic solution. Pocket was closed in layers using 2-0 and 4-0 absorbable sutures. Subsequent adhesive was applied to the skin. DIVISION CHAIR: [employer]. Serial number [id number]. PLAN: Proceed with a chest x-ray and telemetry monitoring. Dictated By: JUAN TURNER/NTS Conf#: [id number] DID#: [id number] CC: ESPERANZA DIAZ MD;*EndCC*
[2016-11-15] MEDS ORDERED: HYDROCODONE/APAP (5/325) TAB PO PRN (21:00)
--- NOTE | 2016-11-15 22:58 | RADRPT ---
PROCEDURE: XR Chest. CLINICAL INDICATION: Placement of left anterior chest wall dual chamber cardiac pacer. TECHNIQUE: Single frontal view of the chest was obtained COMPARISON: Plain film chest dated 11/09/2016. FINDINGS: New left anterior chest wall dual chamber cardiac pacer with lead tips over expected locations of th e right atrium right ventricle. Cardiomegaly. Volume loss on the right with likely pleural thickening and old right rib fractures versus surgical ribs. New right lung base atelectasis versus airspace disease. Left lung remains clear, without sign ificant change, given differences in plane film technique since 11/09/2016. There is no pleural effusion or pneumothorax. IMPRESSION: New left anterior chest wall cardiac pacer, without pneumothorax. RPTAT: [facility] Physician Felipe Date Time Electronically viewed and signed by Physician Felipe on 11/15/2016 22:58 RS/
[2016-11-16] VITALS (10 sets, daily range): BP systolic 131–169; BP diastolic 60–79; PULSE 75–87; RESP 17–20
[2016-11-16] MEDS: VANCOMYCIN 1 GM in NS 250 ML IVPB SCH ×2 (05:53→17:38)
[2016-11-16 07:11] LABS: ADD SCAN DIFF NO
[2016-11-16 07:17] LABS: ABNORMAL IP MESSAGE 1; BASOPHIL # 0.1 10^3/ul (0.0-0.1); BASOPHILS % 1.3 % (0.0-2.0); EOSINOPHILS # 0.1 10^3/ul (0.0-0.5); EOSINOPHILS % 0.8 % (0.0-7.0); HEMATOCRIT 35.3 % (42.0-52.0); HEMOGLOBIN 11.4 g/dl (14.0-18.0); LYMPHOCYTES # 0.5 10^3/ul (0.8-2.9); LYMPHOCYTES % 5.6 % (15.0-51.0); MEAN CORPUSCULAR HEMOGLOBIN 28.9 pg (29.0-33.0); MEAN CORPUSCULAR HGB CONC 32.3 g/dl (32.0-37.0); MEAN CORPUSCULAR VOLUME 89.6 fl (82.0-101.0); MONOCYTE # 0.6 10^3/ul (0.3-0.9); MONOCYTES % 5.9 % (0.0-11.0); NEUTROPHIL # 7.7 10^3/ul (1.6-7.5); NEUTROPHILS % 80.1 % (39.0-77.0); PLATELET COUNT 185 10^3/UL (140-415); RED BLOOD COUNT 3.94 10^6/ul (4.70-6.10); RED CELL DISTRIBUTION WIDTH 16.6 % (11.5-14.5); WHITE BLOOD COUNT 9.7 10^3/ul (4.8-10.8)
[2016-11-16 07:41] LABS: POTASSIUM 3.3 mmol/L (3.5-5.1)
[2016-11-16 07:44] LABS: CREATININE 0.75 mg/dl (0.61-1.24)
[2016-11-16 07:45] LABS: CALCIUM 7.3 mg/dl (8.4-10.2)
[2016-11-16] MEDS: FAMOTIDINE 20 MG TAB PO SCH (08:56)
[2016-11-16] MEDS: AMLODIPINE 5 MG TAB PO SCH (08:56)
[2016-11-16] MEDS ORDERED: POTASSIUM CHLORIDE (SR) 20 MEQ TAB PO STA (10:18)
--- NOTE | 2016-11-16 10:31 | PN ---
Date/Time of Note Date/Time of Note DATE: 11/16/16 TIME: 10:22 Assessment/Plan VTE Prophylaxis VTE Prophylaxis Intervention: SCD's Lines/Catheters IV [facility] Saline Lock Urinary Cath still in place: No Assessment/Plan Assessment/Plan 89-year-old male with: 1. S/p Sepsis secondary to either bronchitis versus urinary tract infection and pyelonephritis. Afebrile and WBC trended down to normal Blood cx 1/2 with Coag negative staph and Urine cx mixed bacteria, all likely contaminants, repeat Blood cx NGTD Appreciate ID recs , will get final recs for discharge from ID. 2. Sinus bradycardia, 2:[address] Greer, unclear etiology, Trop back down to normal. TFTs wnl. POD#1 s/p Pacemaker placement D/c plan today if OK with Cardio. Remains hemodynamically stable. 3. Elevated troponin, possible non-ST elevation myocardial infarction, also concern regarding bradycardia. Appreciate Dr Greer's evaluation and recommendations, CE trended down 2-D echocardiogram wnl. 4. Hypertension: continue Norvasc and hydralazine prn. Can Add BBlock if needed since patient now with PPM 5. Rhabdomyolysis: Resolved d/c IVF. 6. Thrombocytopenia: resolved CT A/P with normal appearance of liver but per family, patient was taking a lot of Tylenol for shoulder pain. 7. Acute kidney injury secondary to prerenal azotemia, resolved. 8. Possible pyelonephritis on CT. Continue current antibiotics. F/u final ID recs. 9. Status post right upper lobectomy. Prophylaxis. SCDs for DVT ppx. Pepcid for GI prophylaxis. DISPOSITION: D/c plan to SNF today if OK with Cardio . Subjective 24 Hr Interval Summary Free Text/Dictation Patient doing well post PPM placement Afebrile, labs stable. D/c plan today to SNF if possible and patient agreeable, if not Home with HHPT Exam/Review of Systems Vital Signs Vitals Vital Signs Date Time Temp Pulse Resp B/P Pulse Ox O2 Delivery O2 Flow Rate FiO2 11/16/16 09:07 80 11/16/16 08:14 Nasal Cannula 3.0 11/16/16 07:03 98.2 17 169/79 95 11/13/16 17:00 28 Intake and Output 311/15/16 11/16/16 14:59 22:59 06:59 Intake Total 550 ml 1400 ml Output Total 350 ml 850 ml Balance 550 ml -350 ml 550 ml Exam Constitutional: alert, oriented (x2 to 3), well developed Respiratory: clear to auscultation, normal air movement, other (known right lobectomy ) Cardiovascular: nl pulses, regular rate and rhythm (paced ) Gastrointestinal: non-tender, soft Musculoskeletal: nl extremities to inspection Extremities: normal pulses, other (no edema, clubbing or cyanosis ) Neurological: STATION SUPERINTENDENT II-XII intact, nl mental status, nl speech, nl strength Results Result Diagram: 11/16/16 0635 11/16/16 0635 Results 24 hrs Laboratory Tests Test 11/16/16 06:35 Anion Gap 12 Basophils # 0.1 Basophils % 1.3 Blood Urea Nitrogen 24 H Calcium Level 7.3 L Carbon Dioxide Level 26 Chloride Level 100 Creatinine 0.75 Eosinophils # 0.1 Eosinophils % 0.8 Glucose Level 94 Hematocrit 35.3 L Hemoglobin 11.4 L Lymphocytes # 0.5 L Lymphocytes % 5.6 L Magnesium Level 1.9 Mean Corpuscular Hemoglobin 28.9 L Mean Corpuscular Hemoglobin Concent 32.3 Mean Corpuscular Volume 89.6 Mean Platelet Volume 11.0 H Monocytes # 0.6 Monocytes % 5.9 Neutrophils # 7.7 H Neutrophils % 80.1 H Nucleated Red Blood Cells # 0.0 Nucleated Red Blood Cells % 0.0 Platelet Count 185 # Potassium Level 3.3 L Red Blood Count 3.94 L Red Cell Distribution Width 16.6 H Sodium Level 135 White Blood Count 9.7 Medications Medications Current Medications Ondansetron HCl (Zofran Inj) 4 mg Q6H PRN IV NAUSEA AND/OR VOMITING; Start 11/10 at 00:00 Acetaminophen (Tylenol Tab) 650 mg Q6H PRN PO PAIN LEVEL 1-3 OR FEVER Last administered on 11/10/16t 20:33; Admin Dose 650 MG; Start 11/10/16 at 00:00 Morphine Sulfate (morphine) 2 mg Q4H PRN IV PAIN LEVEL 7-10; Start 11/10/16 at 00:00 Docusate Sodium (Colace) 100 mg Q12H PRN PO CONSTIPATION; Start 11/10/16 at 00: 00 Magnesium Hydroxide (Milk Of Mag) 30 ml DAILY PRN PO CONSTIPATION; Start at 00:00 Bisacodyl (Dulcolax Supp) 10 mg DAILY PRN [place] CONSTIPATION; Start 11/10/16 at 00: 00 Famotidine 20 mg 20 mg DAILY PO Last administered on 11/16/16 08:56; Admin Dose 20 MG; Start 11/11/16 at 09:00 Vancomycin HCl (Vancocin) 250 ml @ 125 mls/hr Q12H IVPB Last administered on 05:53; Admin Dose 125 MLS/HR; Start 11/14/16 at 05:00 Amlodipine Besylate (Norvasc) 5 mg BID PO Last administered on 11/16/16 08:56 ; Admin Dose 5 MG; Start 11/14/16 at 12:00 Hydralazine HCl (Apresoline) 10 mg Q8H PRN IV ELEVATED BLOOD PRESSURE Last administered on 11/15/16 15:52; Admin Dose 10 MG; Start 11/14/16 at 12:00 Acetaminophen/ Hydrocodone Bitart (Printer (5/325)) 1 tab Q8H PRN PO PAIN LEVEL 8 -10; Start 11/15/16 at 21:00 ESPERANZA DIAZ Nov 16, 2016 10:31
[2016-11-16] MEDS ORDERED: LISINOPRIL 5 MG TAB PO SCH (11:00)
--- NOTE | 2016-11-16 11:05 | CONS ---
Date/Time of Note Date/Time of Note DATE: 11/16/16 TIME: 11:01 Assessment/Plan Assessment/Plan Additional Assessment/Plan Presumed sepsis with positive blood cultures SIRS Encephalopathy Preserved ejection fraction 2-1 AV block status post pacemaker Mildly elevated troponin Thrombocytopenia Hypertension -Patient status post pacemaker. Pocket site within normal limits. Patient to not lift left elbow above shoulder height for 4 weeks, no shower 2 days, left arm in sling for 2 weeks. Blood pressure elevated today, would start lisinopril as renal function permits. Consultation Date/Type/Reason Admit Date/Time Nov 09, 2016 at 23:32 Type of Consultation: cv 24 HR Interval Summary Free Text/Dictation Patient denies shortness of breath, chest pain or palpitations Exam/Review of Systems Vital Signs Vitals Vital Signs Date Time Temp Pulse Resp B/P Pulse Ox O2 Delivery O2 Flow Rate FiO2 11/16/16 09:07 80 11/16/16 08:14 Nasal Cannula 3.0 11/16/16 07:03 98.2 17 169/79 95 11/13/16 17:00 28 Intake and Output 11/15/16 11/15/16 11/16/16 15:00 23:00 07:00 Intake Total 550 ml 1400 ml Output Total 350 ml 850 ml Balance 550 ml -350 ml 550 ml Exam Following commands, no apparent distress Constitutional: alert Head: normocephalic Neck: supple Respiratory: other (Coarse breath sounds bilaterally, no wheezing) Cardiovascular: other (S1-S2 heard), regular rate and rhythm Gastrointestinal: bowel sounds, non-tender, other (No guarding), soft Musculoskeletal: other (Chest wall pacemaker site with no drainage, minimal ecchymosis) Extremities: other (No edema) Results Result Diagram: 11/16/16 0635 11/16/16 0635 Results 24 hrs Laboratory Tests Test 11/16/16 06:35 Anion Gap 12 Basophils # 0.1 Basophils % 1.3 Blood Urea Nitrogen 24 H Calcium Level 7.3 L Carbon Dioxide Level 26 Chloride Level 100 Creatinine 0.75 Eosinophils # 0.1 Eosinophils % 0.8 Glucose Level 94 Hematocrit 35.3 L Hemoglobin 11.4 L Lymphocytes # 0.5 L Lymphocytes % 5.6 L Magnesium Level 1.9 Mean Corpuscular Hemoglobin 28.9 L Mean Corpuscular Hemoglobin Concent 32.3 Mean Corpuscular Volume 89.6 Mean Platelet Volume 11.0 H Monocytes # 0.6 Monocytes % 5.9 Neutrophils # 7.7 H Neutrophils % 80.1 H Nucleated Red Blood Cells # 0.0 Nucleated Red Blood Cells % 0.0 Platelet Count 185 # Potassium Level 3.3 L Red Blood Count 3.94 L Red Cell Distribution Width 16.6 H Sodium Level 135 White Blood Count 9.7 Medications Medications Current Medications Ondansetron HCl (Zofran Inj) 4 mg Q6H PRN IV NAUSEA AND/OR VOMITING; Start 11/10 at 00:00 Acetaminophen (Tylenol Tab) 650 mg Q6H PRN PO PAIN LEVEL 1-3 OR FEVER Last administered on 11/10/16 20:33; Admin Dose 650 MG; Start 11/10/16 at 00:00 Morphine Sulfate (morphine) 2 mg Q4H PRN IV PAIN LEVEL 7-10; Start 11/10/16 at 00:00 Docusate Sodium (Colace) 100 mg Q12H PRN PO CONSTIPATION; Start 11/10/16 at 00: 00 Magnesium Hydroxide (Milk Of Mag) 30 ml DAILY PRN PO CONSTIPATION; Start at 00:00 Bisacodyl (Dulcolax Supp) 10 mg DAILY PRN IN CONSTIPATION; Start 11/10/16 at 00: 00 Famotidine 20 mg 20 mg DAILY PO Last administered on 11/16/16 08:56; Admin Dose 20 MG; Start 11/11/16 at 09:00 Vancomycin HCl (Vancocin) 250 ml @ 125 mls/hr Q12H IVPB Last administered on 05:53; Admin Dose 125 MLS/HR; Start 11/14/16 at 05:00 Amlodipine Besylate (Norvasc) 5 mg BID PO Last administered on 11/16/16 08:56 ; Admin Dose 5 MG; Start 11/14/16 at 12:00 Hydralazine HCl (Apresoline) 10 mg Q8H PRN IV ELEVATED BLOOD PRESSURE Last administered on 11/15/16 15:52; Admin Dose 10 MG; Start 11/14/16 at 12:00 Acetaminophen/ Hydrocodone Bitart 1 tab 1 tab Q8H PRN PO PAIN LEVEL 8-10; Start 11/15/16 at 21:00 Magnesium Sulfate/ Dextrose (Magnesium Sulfate 1 Gm/D5W) 100 ml @ 100 mls/hr ONCE ONCE IVPB ; Start 11/16/16 at 12:00; Stop 11/16/16 at 12:59 Ge Greer DO Nov 16, 2016 11:04
--- NOTE | 2016-11-16 11:06 | PDOCDIS ---
Discharge Instructions CONDITION Patient Condition: Stable HOME CARE INSTRUCTIONS: Special Diet: cardiac diet ACTIVITY: Activity Restrictions: Slowly Increase Activity Avoid heavy lifting Avoid Heavy Housework Activity Restrictions Comment: No shower x 2 days, see additionnal instructions FOLLOW UP/APPOINTMENTS Appointments Follow up with PCP in 1 week Follow up with Dr Garcia in 1 week for wound and pacer check OTHER ORDERS: Other Orders: Do not elevate left elbow higher then left shoulder height x 4 weeks Keep Left arm in sling x 2 weeks ESPERANZA DIAZ Nov 16, 2016 11:06
[2016-11-16] MEDS ORDERED: MAGNESIUM SULFATE 1 GM/D5W 100 ML IVPB ONE (12:00)
--- NOTE | 2016-11-16 15:36 | PN ---
DATE: 11/16/2016 INFECTIOUS DISEASE PROGRESS NOTE SUBJECTIVE: Patient is lying comfortably in bed. No fevers. Vital signs stable. WBC 9.7, neutrophils 80.1, BUN 24, creatinine 0.75. MICROBIOLOGY: Blood culture on admission grew coagulase-negative staph species. Repeat blood cultu res negative. Urine culture growing Linsey albicans. DIAGNOSTICS: Chest x-ray yesterday revealed new left anterior chest cardiac pacemaker. ANTIMICROBIALS: The patient is on vancomycin. PHYSICAL EXAMINATION: GENERAL: Fragile, elderly man who is awake, in no distress. HEENT: Head atraumatic, normocephalic. Sclerae anicteric. Buccal mucosa dry. NECK: Supple. CHEST: Rise symmetrical. Breath sounds clear. HEART: S1, S2. ABDOMEN: Soft, bowel tones present. EXTREMITIES: Without cyanosis. ASSESSMENT: 1. Status post coagulase-negative staph bacteremia which is probable contaminant. 2. Linsey albicans positive urine culture, doubt active infection, less than 10,000 colonies. 3. Hypertension. 4. Acute kidney injury. 5. Status post sinus bradycardia with cardiac block requiring permanent pacemaker yesterday. PLAN: The patient remains stable, pending discharge planning, will keep him on vancomycin for a tot al of [address] Snider. Dictated By: ANAM RIVAS P[employer]ING LINE OPERATOR for ALEXANDRU HOLLIS/SHAKILA Conf#: [id number] DID#: [id number]
== END 2016-11-16 19:35 | DRG 871 ==
LOC: E/R 20:03 → TEL 23:32
PROVIDERS: ADMIT Internal Medicine; ATTEND Internal Medicine
PROC: 0JH606Z Insertion of Pacemaker, Dual Chamber into Chest Subcutaneous Tissue and Fascia, Open Approach (ICD-10-PCS; principal; 2016-11-15)
PROC: 02HK3JZ Insertion of Pacemaker Lead into Right Ventricle, Percutaneous Approach (ICD-10-PCS; 2016-11-15)
PROC: 02H63JZ Insertion of Pacemaker Lead into Right Atrium, Percutaneous Approach (ICD-10-PCS; 2016-11-15)
DX: A41.1 Sepsis due to other specified staphylococcus (principal); I21.4 Non-ST elevation (NSTEMI) myocardial infarction; J18.9 Pneumonia, unspecified organism; G93.41 Metabolic encephalopathy; N17.9 Acute kidney failure, unspecified; M62.82 Rhabdomyolysis; D69.6 Thrombocytopenia, unspecified; N12 Tubulo-interstitial nephritis, not specified as acute or chronic; Z87.891 Personal history of nicotine dependence; I44.1 Atrioventricular block, second degree; J40 Bronchitis, not specified as acute or chronic
CPT/HCPCS: 36415; 71010; 71250; 74176; 80048; 80053; 80061; 80202; 81001; 81003; 82550; 82553; 82565; 83605; 83690; 83735; 83880; 84100; 84439; 84443; 84484; 84520; 85025; 85049; 85362; 85378; 85384; 85610; 85670; 85730; 87040; 87086; 93005; 93306; 96374; 96375; 97110; 97116; 97163; 97166; 97530; C1786; C1898; C2629; J0360; J0692; J1650; J2250; J2543; J3010; J3370; J3475; J7030; J7040; Q9967